=== PATIENT | male | born 1945 | race Caucasian/White ===

== ENCOUNTER 2019-02-01 19:08 | Observation (INO) | payer MEDICARE, OTHER, SELFPAY ==
[2019-02-01 19:35] VITALS: BP 161/97; PULSE 88; RESP 22; TEMP 36.8; O2SAT 95; BMI 34.7
[2019-02-01 21:30] VITALS: BP 146/97; PULSE 70; O2SAT 94
--- NOTE | 2019-02-01 21:30 | ED.WEAKNESS ---
HPI - Weakness General Chief complaint: Weakness Stated complaint: SIDE AFFECTS TO CHEMO Time Seen by Provider: 02/01/19 21:30 Source: patient and family Mode of arrival: ambulatory Limitations: no limitations History of Present Illness HPI Narrative: 73-year-old male former smoker with history of renal cell carcinoma, hypertension, hyperlipidemia received a new chemotherapy drug about 10 days ago and has been in decline ever since. He has had decreasing appetite and overall oral intake. He has become increasingly weak over the past 5 days and his sister states he now requires significant help to even get out of the chair. This is a drastic departure from his norm as he is typically high functioning person whom lives alone, and has no problem doing so. He denies any specific complaints other than increased difficulty controlling his urine outflow which has been an ongoing problem. He denies any fever chills nor chest pain or shortness of breath. He is dizzy and weak, as stated. He denies abdominal pain but has ongoing nausea and decreased appetite. He denies any diarrhea or constipation MD Complaint: generalized weakness Onset (ago): day(s) Duration: constant Location: generalized Relieving factors: none Exacerbating factors: none Context: new medication Associated symptoms: denies other symptoms Related Data Home Medications Medication Instructions Recorded Confirmed Daily Multivitamin 1 tab PO DAILY 02/02/19 02/02/19 axitinib [Inlyta] 5 mg PO BID 02/02/19 02/02/19 cyanocobalamin (vitamin B-12) 1 cap PO DAILY 02/02/19 02/02/19 metoprolol succinate 12.5 mg PO DAILY 02/02/19 02/02/19 simvastatin 20 mg PO DAILY 02/02/19 02/02/19 Allergies Allergy/AdvReac Type Severity Reaction Status Date / Time No Known Drug Allergies Allergy Verified 02/02/19 02:10 Review of Systems Constitutional Denies chills, Denies fever(s), Denies lethargy and Reports weakness Eyes Denies change in vision, Denies eye discharge, Denies irritation and Denies loss of vision ENT Ears, Nose, Mouth, and Throat: Denies change in voice, Denies neck pain and Denies sore throat Cardiovascular Denies chest pain, Denies irregular heart rhythm, Denies lightheadedness, Denies palpitations, Denies dyspnea, Denies dyspnea on exertion and Denies orthopnea Respiratory Denies cough, Denies dyspnea, Denies dyspnea on exertion and Denies wheezing Gastrointestinal Gastrointestinal: Denies abdominal pain, Denies change in bowel habits, Denies diarrhea, Denies nausea and Denies vomiting Genitourinary Denies hematuria, Denies flank pain, Denies urinary incontinence and Denies urinary urgency Musculoskeletal Denies neck pain Integumentary/Breasts Denies pruritus, Denies erythema, Denies rash and Denies wounds Neurologic Denies confusion, Denies loss of vision and Reports weakness Psychiatric Denies anxiety, Denies confusion, Denies depression, Denies homicidal ideation and Denies suicidal ideation Endocrine Denies palpitations Hematologic/Lymphatic Denies easy bruising Allergic/Immunologic Denies wheezing [facility] Medical History Hx of blood clots (Chronic) BPH (benign prostatic hyperplasia) (Chronic) Hyperlipidemia (Chronic) Essential hypertension (Chronic) Renal cell carcinoma (Acute) History of prostate cancer (Inactive) Surgical History H/O left nephrectomy (Chronic) S/P TURP (Resolved) Family History (Updated 02/02/19 @ 02:59 by REGULO Cardoaz) Mother Colon cancer Father Kidney failure Diabetes mellitus Social History household members: none Smoking Status: Former smoker alcohol intake: current Family History Mother Colon cancer Father Kidney failure Diabetes mellitus Social History household members: none Smoking Status: Former smoker alcohol intake: current Exam Narrative Exam Narrative: GENERAL: [73] year old patient appears stated age. He is clearly ill, and requires significant help to get from the wheelchair HEAD: Atraumatic. Normocephalic. EYES: Pupils equal round and reactive. Extraocular motions intact. No scleral icterus. No injection or drainage. ENT: Dry mucous membranes Nose without bleeding, purulent drainage. Throat without erythema, tonsillar hypertrophy or exudate. Airway patent. NECK: Trachea midline. Non tender CARDIOVASCULAR: Regular rate and rhythm without murmurs, gallops, or rubs. RESPIRATORY: Clear to auscultation. Breath sounds equal bilaterally. No wheezes, rales, or rhonchi. GASTROINTESTINAL: Abdomen soft, non-tender, nondistended. EXTREMITIES: No edema or joint tenderness. BACK: Nontender without deformity or crepitance. No flank tenderness. NEURO: AOx3. SKIN: Poor turgor. No rash or erythema of visible areas Initial Vital Signs Initial Vital Signs: Vital Signs Temperature 98.2 F 02/01/19 19:35 Pulse Rate 88 02/01/19 19:35 Respiratory Rate 22 02/01/19 19:35 Blood Pressure 161/97 H 02/01/19 19:35 Pulse Oximetry 95 02/01/19 19:35 Course Orders Ordered: ED Orders 02/01/19 22:23 Basic Metabolic Panel Stat Complete Blood Count AUTO DIFF Stat Procalcitonin Stat 02/01/19 23:23 Urinalysis and Microscopic Stat 02/02/19 05:28 Basic Metabolic Panel Routine Complete Blood Count AUTO DIFF Routine Heparin Sodium (Porcine) (Heparin) 5,000 unit SUBCUT BID JOHN Sodium Chloride (Normal Saline 0.45%) 1,000 mls @ 100 mls/hr IV CONT JOHN Last Admin: 02/02/19 03:21 Dose: 100 mls/hr Influenza Virus Vaccine (Flu Vaccine) 0.5 ml IM .ONCE ONE Stop: 02/02/19 09:01 Ondansetron HCl (Zofran) 4 mg IV Q6HR JOHN Last Admin: 02/02/19 05:52 Dose: Not Given Sodium Chloride (Normal Saline 0.9% Flush) 10 ml IV PRN PRN PRN Reason: Flush Last Admin: 02/02/19 03:20 Dose: 10 ml Discontinued Medications Hydralazine HCl (Apresoline) 10 mg PO NOW ONE Stop: 02/02/19 03:07 Last Admin: 02/02/19 03:53 Dose: Not Given Sodium Chloride (Normal Saline 0.9%) 1,000 mls @ 1,000 mls/hr IV BOLUS ONE Stop: 02/02/19 02:03 Last Infusion: 02/02/19 02:10 Dose: 0 mls/hr Admin: 02/02/19 01:15 Dose: 1,000 mls/hr Vital Signs - 8 hr 02/01/19 22:48 02/02/19 01:50 02/02/19 02:31 Temperature Pulse Rate 66 63 67 Respiratory Rate 16 14 Blood Pressure 172/93 H Blood Pressure [Right Arm] 166/103 H 160/90 H Pulse Oximetry 96 95 94 02/02/19 02:45 Temperature 98.0 F Pulse Rate 66 Respiratory Rate 19 Blood Pressure 146/81 H Blood Pressure [Right Arm] Pulse Oximetry 97 MDM - Weakness Lab Data Result diagrams: 02/02/19 05:28 02/02/19 05:28 Lab Results 02/01/19 02/01/19 02/01/19 Range/Units 22:23 22:23 22:23 WBC 8.8 (4.5-11.0) X10^3/uL RBC 4.93 (4.5-5.9) X10^6/uL Hgb 15.1 (13.5-17.5) g/dL Hct 43.6 (41-53) % MCV 88.5 (80-100) fL MCH 30.7 (26-34) PG MCHC 34.7 (30-36) % RDW 14.6 (11.6-14.8) % Plt Count 247 (150-400) X10^3/uL Neut % (Auto) 66.8 (50-75) % Lymph % (Auto) 20.5 L (25-40) % [place] % (Auto) 11.2 (3-14) % Eos % (Auto) 0.9 L (2-4) % Baso % (Auto) 0.6 (0-2) % Neut # (Auto) 5900 (4041-5277) /uL Lymph # (Auto) 1800 (3430-4392) /uL [place] # (Auto) 1000 H (0-900) /uL Eos # (Auto) 100 (0-450) /uL Baso # (Auto) 100 (0-100) /uL Sodium 136 L (137-145) mmol/L Potassium 4.5 (3.4-5.1) mmol/L Chloride 105 (98-107) mmol/L Carbon Dioxide 20 L (22-32) mmol/L BUN 38 H (9-20) mg/dL Creatinine 2.40 H (0.66-1.25) mg/dL Estimated GFR 26.8 L (>60) mL/min BUN/Creatinine Ratio 15.8 (6-22) Glucose 81 (80-110) mg/dL Calcium 9.2 (8.4-10.2) mg/dL Procalcitonin 0.07 (<0.5) ng/mL Urine Color Urine Appearance Urine pH (4.5-8.0) Ur Specific [place] (1.000-1.035) Urine Protein (Negative) Urine Glucose (UA) (Negative) g/dL Urine Ketones (NEGATIVE) Urine Occult Blood (Negative) Urine Nitrate (Negative) Urine Bilirubin (NEGATIVE) Urine Urobilinogen (0.2) E.U./dL Ur Leukocyte Esterase (NEGATIVE) Urine RBC (0-5/HPF) Urine WBC (0-5/HPF) Urine Bacteria (None) Hyaline Casts (None) Granular Casts (None) Ur Culture Indicated? 02/01/19 02/02/19 02/02/19 Range/Units 23:23 05:28 05:28 WBC 8.8 (4.5-11.0) X10^3/uL RBC 4.71 (4.5-5.9) X10^6/uL Hgb 14.4 (13.5-17.5) g/dL Hct 42.3 (41-53) % MCV 89.8 (80-100) fL MCH 30.5 (26-34) PG MCHC 33.9 (30-36) % RDW 14.2 (11.6-14.8) % Plt Count 213 (150-400) X10^3/uL Neut % (Auto) 72.3 (50-75) % Lymph % (Auto) 15.7 L (25-40) % [place] % (Auto) 10.1 (3-14) % Eos % (Auto) 1.3 L (2-4) % Baso % (Auto) 0.6 (0-2) % Neut # (Auto) 6300 (8071-0126) /uL Lymph # (Auto) 1400 (7300-1391) /uL [place] # (Auto) 900 (0-900) /uL Eos # (Auto) 100 (0-450) /uL Baso # (Auto) 100 (0-100) /uL Sodium 137 (137-145) mmol/L Potassium 4.3 (3.4-5.1) mmol/L Chloride 106 (98-107) mmol/L Carbon Dioxide 22 (22-32) mmol/L BUN 34 H (9-20) mg/dL Creatinine 2.40 H (0.66-1.25) mg/dL Estimated GFR 26.8 L (>60) mL/min BUN/Creatinine Ratio 14.2 (6-22) Glucose 106 (80-110) mg/dL Calcium 8.4 (8.4-10.2) mg/dL Procalcitonin (<0.5) ng/mL Urine Color Yellow Urine Appearance Clear Urine pH 5.0 (4.5-8.0) Ur Specific [place] 1.020 (1.000-1.035) Urine Protein Trace H (Negative) Urine Glucose (UA) Negative (Negative) g/dL Urine Ketones Negative (NEGATIVE) Urine Occult Blood 3+ H (Negative) Urine Nitrate Negative (Negative) Urine Bilirubin Negative (NEGATIVE) Urine Urobilinogen 0.2 (0.2) E.U./dL Ur Leukocyte Esterase Negative (NEGATIVE) Urine RBC 5-10/hpf H (0-5/HPF) Urine WBC 0-1/hpf (0-5/HPF) Urine Bacteria None seen (None) Hyaline Casts 0-1/lpf (None) Granular Casts 0-1/lpf (None) Ur Culture Indicated? Cult not indicated Imaging Data Chest x-ray: Radiologist's impression: [address] [address] XRay Report Signed Patient: Sean Shipman [facility]#: [id number] : 8Acct:[id number] Age/Sex: 73 / MDate of Service: 02/01/19 Loc: ED Accession Number: [id number] Procedure: XR chest 2V Ordering Provider: Obed Grant D.O. PROCEDURE: XR CHEST 2V INDICATIONS: shortness of breath TECHNIQUE: 2 views of the chest were acquired. COMPARISON: [facility], CT, CT CHEST ABDOMEN PELVIS WITHOUT CONTRAST, 12/24/2018, 14:42. FINDINGS: Surgical changes and devices: None. Lungs and pleura: Previously noted small bilateral pulmonary nodules are not well-visualized on radiographic evaluation. No focal consolidation. Minimal streaky bibasilar opacities are favored to represent atelectasis. No pleural effusions or pneumothorax. Mediastinum: Mediastinal contours are normal. Heart size is normal. Bones and chest wall: No suspicious bony abnormalities. Soft tissues appear unremarkable. IMPRESSION: Chest without acute cardiopulmonary abnormalities. Minimal streaky bibasilar opacities are favored to represent atelectasis. Dictated by: David Aldana M.D. on 02/01/2019 at 21:46 Approved by: David Aldana M.D. on 02/01/2019 at 21:48 [facility] Narrative Medical decision making narrative: 73-year-old chronically ill male with multiple medical problems has taken a clear turn for the worse over the past week or so. Historically he is a high functioning individual whom lives alone and over the past 5 days has had a precipitous decline and requires rapidly increasing levels of assistance. He has had decreased appetite, is losing weight and is dehydrated on exam. He will require hospitalization for stabilization and further characterization of his underlying illness. Discharge Plan Departure Patient Disposition: Admitted as Observation Clinical Impression: Dehydration, Failure to thrive, Generalized weakness Discharge Date/Time: 02/02/19 02:44 Interventions: ED Discharge Assessment Last Done: 02/02/19 02:31 Admit Date/Time: 02/02/19 02:16 Admit Provider: Francesca Orourke
[2019-02-01 22:34] LABS: Add Manual Diff / Slide Review NO; Basophils Absolute Auto 100 /uL (0-100); Basophils Percent Auto 0.6 % (0-2); Eosinophils Absolute Auto 100 /uL (0-450); Eosinophils Percent Auto 0.9 % (2-4); Hematocrit 43.6 % (41-53); Hemoglobin 15.1 g/dL (13.5-17.5); Lymphocytes Absolute Auto 1800 /uL (1100-4500); Lymphocytes Percent Auto 20.5 % (25-40); Mean Corpuscular HGB Conc 34.7 % (30-36); Mean Corpuscular Hemoglobin 30.7 PG (26-34); Mean Corpuscular Volume 88.5 fL (80-100); Monocytes Absolute Auto 1000 /uL (0-900); Monocytes Percent Auto 11.2 % (3-14); Neutrophils Absolute Auto 5900 /uL (1500-7000); Neutrophils Percent Auto 66.8 % (50-75); Platelet Count 247 X10^3/uL (150-400); Red Blood Cell Count 4.93 X10^6/uL (4.5-5.9); Red Cell Distribution Width 14.6 % (11.6-14.8); White Blood Cell Count 8.8 X10^3/uL (4.5-11.0)
[2019-02-01 22:46] LABS: BUN Creatinine Ratio 15.8 (6-22); Blood Urea Nitrogen 38 mg/dL (9-20); Calcium 9.2 mg/dL (8.4-10.2); Carbon Dioxide 20 mmol/L (22-32); Chloride 105 mmol/L (98-107); Estimated Glomerular Filt Rate 26.8 mL/min (>60); Glucose 81 mg/dL (80-110); HEMOLYSIS 40 (0-50); Potassium 4.5 mmol/L (3.4-5.1); Sodium 136 mmol/L (137-145)
[2019-02-01 22:48] VITALS: BP 166/103; PULSE 66; RESP 16; O2SAT 96
[2019-02-01 23:02] LABS: Procalcitonin 0.07 ng/mL (<0.5)
[2019-02-01 23:30] LABS: Bacteria Urine None Seen
[2019-02-01 23:33] LABS: Appearance Urine UA CLEAR; Bilirubin Urine UA NEGATIVE (NEGATIVE); Color Urine UA YELLOW; Glucose Urine UA NEGATIVE (Negative); Ketones Urine UA NEGATIVE (NEGATIVE); Leukocyte Esterase Urine UA NEGATIVE (NEGATIVE); Nitrite Urine UA NEGATIVE (Negative); Occult Blood Urine UA 3+ (Negative); Protein Urine UA TRACE (Negative); Urobilinogen Urine UA 0.2 E.U./dL (0.2)
[2019-02-01 23:40] LABS: RBC Urine 5-10/HPF (0-5/HPF)
[2019-02-01 23:41] LABS: Granular Casts Urine 0-1/LPF; Hyaline Casts Urine 0-1/LPF
[2019-02-01 23:42] LABS: Culture Indicated Urine Cult Not Indicated; WBC Urine 0-1/HPF (0-5/HPF)
[2019-02-02] VITALS (10 sets, daily range): BP systolic 143–172; BP diastolic 81–94; PULSE 21–73; RESP 14–73; TEMP 36.4–36.7; O2SAT 94–97; BMI 33.6
[2019-02-02] MEDS: SODIUM CHLORIDE 0.9% 1,000 ML 1000 ML IV (01:15)
--- NOTE | 2019-02-02 02:52 | PM.HP.1 ---
History of Present Illness Date Patient Seen: 02/02/19 Time Patient Seen: 02:30 Chief complaint: SIDE AFFECTS TO CHEMO Narrative: Sean Shipman is a pleasant 73-year-old male with a history of hypertension, hyperlipidemia, prostate cancer, and history of a urethral blood clot, currently being treated for renal cell carcinoma and undergoing immune therapy under the care of Dr. Orourke at [facility]. He states that he underwent an immunotherapy treatment 2 weeks ago which was the 1st treatment he had received for the renal cell carcinoma. He does not know what medications he was administered. He reported to the emergency room having no energy he has had a little bit of diarrhea however none today. He denies fever or chills, shortness of breath, chest pain, nausea or vomiting, abdominal pain, he does endorse having urinary urge particularly has been bad since starting this immune therapy. He states he has also had stiff joints since starting this immune therapy. He has had longstanding tingling in his toes, denies any lesions or rashes, denies having history of thyroid disease. Patient is under the care of a PCP in [place] however we do not have any records of his current medications and by the time I came down to see him his sister who had his medication list had left. The patient was seen in the ED and noted to be quite dry and essentially unable to walk due to profound fatigue. Patient was very lethargic while interviewing him. Patient History Medical History (Updated 02/02/19 @ 03:03 by REGULO Cardoza) Hx of blood clots (Chronic) BPH (benign prostatic hyperplasia) (Chronic) Hyperlipidemia (Chronic) Essential hypertension (Chronic) Renal cell carcinoma (Acute) History of prostate cancer (Inactive) Surgical History (Updated 02/02/19 @ 02:58 by REGULO Cardoza) H/O left nephrectomy (Chronic) S/P TURP (Resolved) Family History (Updated 02/02/19 @ 02:59 by REGULO Cardoza) Mother Colon cancer Father Kidney failure Diabetes mellitus Social History household members: none Smoking Status: Former smoker alcohol intake: current Family & Social History Family History (Updated 02/02/19 @ 02:59 by REGULO Cardoza) Mother Colon cancer Father Kidney failure Diabetes mellitus 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 Tobacco & Substance use: Smoking history: Quit in 1987 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, 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 Meds Allergies Allergy/AdvReac Type Severity Reaction Status Date / Time No Known Drug Allergies Allergy Verified 02/02/19 02:10 Review of Systems Review of Systems All systems reviewed & are unremarkable except as noted in HPI and below Exam Vital Signs (past 8 hours): - 02/01/19 19:35 02/01/19 21:30 02/01/19 22:48 Temperature 98.2 F Pulse Rate 88 70 66 Respiratory Rate 22 16 Blood Pressure 161/97 H Blood Pressure [Right Arm] 146/97 H 166/103 H Pulse Oximetry 95 94 96 02/02/19 01:50 02/02/19 02:31 Temperature Pulse Rate 63 67 Respiratory Rate 14 Blood Pressure 172/93 H Blood Pressure [Right Arm] 160/90 H Pulse Oximetry 95 94 Oxygen Delivery Method Room Air Narrative Exam Narrative: Gen: Alert, oriented well-developed 73 y.o. male, pale, lethargic, and appears chronically ill. HEENT: normocephalic, atraumatic, conjunctiva clear, sclera non-icteric, oral mucosa pink and dry Neck: supple, full ROM Resp: Lungs CTA, non-labored breathing CV: RRR, no murmur or rubs Abd: soft, non-tender, normoactive BTs Skin: no lesions or rashes, dry and intact Neuro: Alert and oriented X 4 w/no focal deficits Extremities: moves all 4 extremities, is ambulatory, negative Cong?s sign Psyche: normal mood and affect. Objective Labs Result Diagrams: 02/01/19 22:23 02/01/19 22:23 Labs: Laboratory Results - last 24 hr 02/01/19 02/01/19 02/01/19 22:23 22:23 22:23 WBC 8.8 RBC 4.93 Hgb 15.1 Hct 43.6 MCV 88.5 MCH 30.7 MCHC 34.7 RDW 14.6 Plt Count 247 Neut % (Auto) 66.8 Lymph % (Auto) 20.5 L [place] % (Auto) 11.2 Eos % (Auto) 0.9 L Baso % (Auto) 0.6 Neut # (Auto) 5900 Lymph # (Auto) 1800 [place] # (Auto) 1000 H Eos # (Auto) 100 Baso # (Auto) 100 Sodium 136 L Potassium 4.5 Chloride 105 Carbon Dioxide 20 L BUN 38 H Creatinine 2.40 H Estimated GFR 26.8 L BUN/Creatinine Ratio 15.8 Glucose 81 Calcium 9.2 Procalcitonin 0.07 Urine Color Urine Appearance Urine pH Ur Specific [place] Urine Protein Urine Glucose (UA) Urine Ketones Urine Occult Blood Urine Nitrate Urine Bilirubin Urine Urobilinogen Ur Leukocyte Esterase Urine RBC Urine WBC Urine Bacteria Hyaline Casts Granular Casts Ur Culture Indicated? 02/01/19 23:23 WBC RBC Hgb Hct MCV MCH MCHC RDW Plt Count Neut % (Auto) Lymph % (Auto) [place] % (Auto) Eos % (Auto) Baso % (Auto) Neut # (Auto) Lymph # (Auto) [place] # (Auto) Eos # (Auto) Baso # (Auto) Sodium Potassium Chloride Carbon Dioxide BUN Creatinine Estimated GFR BUN/Creatinine Ratio Glucose Calcium Procalcitonin Urine Color Yellow Urine Appearance Clear Urine pH 5.0 Ur Specific [place] 1.020 Urine Protein Trace H Urine Glucose (UA) Negative Urine Ketones Negative Urine Occult Blood 3+ H Urine Nitrate Negative Urine Bilirubin Negative Urine Urobilinogen 0.2 Ur Leukocyte Esterase Negative Urine RBC 5-10/hpf H Urine WBC 0-1/hpf Urine Bacteria None seen Hyaline Casts 0-1/lpf Granular Casts 0-1/lpf Ur Culture Indicated? Cult not indicated Assessment & Plan Assessment & Plan narrative: Sean Shipman this is a 73-year-old male currently undergoing immunotherapy for renal cell carcinoma, will be placed into observation for IV hydration and management of his side effects from the immune therapy. We will need to inform his oncologist of his admission here and obtain current treatment records. 1. 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 Urinalysis is negative for UTI however there is blind in his urine, culture is not indicated. 2. Essential hypertension, chronic, present on admission Patient is aware that he takes metoprolol however the type and dose are unknown He is ordered for 1 dose of p.o. hydralazine 10 mg x1 Will need to obtain his current med list in the morning 3. Hyperlipidemia, chronic Patient states does not know the dose See #2. Patient is admitted to observation as his stay is anticipated to not exceed 2 midnights. FEN: 0.45 NS at 100 ml/hour, 2 gram sodium diet, chemistries in the am. VTE Prophylaxis: Heparin 5000 units subQ bid Disposition: Unknown at this time Code status: Full Code Admission time: 65 minutes Meds reconciled: Yes/No/Partial based on current med list Time Spent With Patient Time with patient: 25 - 35 minutes Quality VTE Deep Vein Thrombosis/Pulmonary Embolism Present on Admission: No
--- NOTE | 2019-02-02 03:06 | P.HP_ITS ---
History of Present Illness Date Patient Seen: 02/02/19 Time Patient Seen: 02:30 Chief complaint: SIDE AFFECTS TO CHEMO Narrative: Sean Shipman is a pleasant 73-year-old male with a history of hypertension, hyperlipidemia, prostate cancer, and history of a urethral blood clot, currently being treated for renal cell carcinoma and undergoing immune therapy under the care of Dr. Orourke at [facility]. He states that he underwent an immunotherapy treatment 2 weeks ago which was the 1st treatment he had received for the renal cell carcinoma. He does not know what medications he was administered. He reported to the emergency room having no energy he has had a little bit of diarrhea however none today. He denies fever or chills, shortness of breath, chest pain, nausea or vomiting, abdominal pain, he does endorse having urinary urge particularly has been bad since starting this immune therapy. He states he has also had stiff joints since starting this immune therapy. He has had longstanding tingling in his toes, denies any lesions or rashes, denies having history of thyroid disease. Patient is under the care of a PCP in [place] however we do not have any records of his current medications and by the time I came down to see him his sister who had his medication list had left. The patient was seen in the ED and noted to be quite dry and essentially unable to walk due to profound fatigue. Patient was very lethargic while interviewing him. Patient History Medical History (Updated 02/02/19 @ 03:03 by REGULO Cardoza) Hx of blood clots (Chronic) BPH (benign prostatic hyperplasia) (Chronic) Hyperlipidemia (Chronic) Essential hypertension (Chronic) Renal cell carcinoma (Acute) History of prostate cancer (Inactive) Surgical History (Updated 02/02/19 @ 02:58 by REGULO Cardoza) H/O left nephrectomy (Chronic) S/P TURP (Resolved) Family History (Updated 02/02/19 @ 02:59 by REGULO Cardoza) Mother Colon cancer Father Kidney failure Diabetes mellitus Social History household members: none Smoking Status: Former smoker alcohol intake: current Family & Social History Family History (Updated 02/02/19 @ 02:59 by REGULO Cardoza) Mother Colon cancer Father Kidney failure Diabetes mellitus 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 Tobacco & Substance use: Smoking history: Quit in 1987 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, 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 Meds Allergies Allergy/AdvReac Type Severity Reaction Status Date / Time No Known Drug Allergies Allergy Verified 02/02/19 02:10 Review of Systems Review of Systems All systems reviewed & are unremarkable except as noted in HPI and below Exam Vital Signs (past 8 hours): - 02/01/19 19:35 02/01/19 21:30 02/01/19 22:48 Temperature 98.2 F Pulse Rate 88 70 66 Respiratory Rate 22 16 Blood Pressure 161/97 H Blood Pressure [Right Arm] 146/97 H 166/103 H Pulse Oximetry 95 94 96 02/02/19 01:50 02/02/19 02:31 Temperature Pulse Rate 63 67 Respiratory Rate 14 Blood Pressure 172/93 H Blood Pressure [Right Arm] 160/90 H Pulse Oximetry 95 94 Oxygen Delivery Method Room Air Narrative Exam Narrative: Gen: Alert, oriented well-developed 73 y.o. male, pale, lethargic, and appears chronically ill. HEENT: normocephalic, atraumatic, conjunctiva clear, sclera non-icteric, oral mucosa pink and dry Neck: supple, full ROM Resp: Lungs CTA, non-labored breathing CV: RRR, no murmur or rubs Abd: soft, non-tender, normoactive BTs Skin: no lesions or rashes, dry and intact Neuro: Alert and oriented X 4 w/no focal deficits Extremities: moves all 4 extremities, is ambulatory, negative Cong?s sign Psyche: normal mood and affect. Objective Labs Result Diagrams: 02/01/19 22:23 02/01/19 22:23 Labs: Laboratory Results - last 24 hr 02/01/19 02/01/19 02/01/19 22:23 22:23 22:23 WBC 8.8 RBC 4.93 Hgb 15.1 Hct 43.6 MCV 88.5 MCH 30.7 MCHC 34.7 RDW 14.6 Plt Count 247 Neut % (Auto) 66.8 Lymph % (Auto) 20.5 L Ross % (Auto) 11.2 Eos % (Auto) 0.9 L Baso % (Auto) 0.6 Neut # (Auto) 5900 Lymph # (Auto) 1800 Ross # (Auto) 1000 H Eos # (Auto) 100 Baso # (Auto) 100 Sodium 136 L Potassium 4.5 Chloride 105 Carbon Dioxide 20 L BUN 38 H Creatinine 2.40 H Estimated GFR 26.8 L BUN/Creatinine Ratio 15.8 Glucose 81 Calcium 9.2 Procalcitonin 0.07 Urine Color Urine Appearance Urine pH Ur Specific Henderson Urine Protein Urine Glucose (UA) Urine Ketones Urine Occult Blood Urine Nitrate Urine Bilirubin Urine Urobilinogen Ur Leukocyte Esterase Urine RBC Urine WBC Urine Bacteria Hyaline Casts Granular Casts Ur Culture Indicated? 02/01/19 23:23 WBC RBC Hgb Hct MCV MCH MCHC RDW Plt Count Neut % (Auto) Lymph % (Auto) Ross % (Auto) Eos % (Auto) Baso % (Auto) Neut # (Auto) Lymph # (Auto) Ross # (Auto) Eos # (Auto) Baso # (Auto) Sodium Potassium Chloride Carbon Dioxide BUN Creatinine Estimated GFR BUN/Creatinine Ratio Glucose Calcium Procalcitonin Urine Color Yellow Urine Appearance Clear Urine pH 5.0 Ur Specific Henderson 1.020 Urine Protein Trace H Urine Glucose (UA) Negative Urine Ketones Negative Urine Occult Blood 3+ H Urine Nitrate Negative Urine Bilirubin Negative Urine Urobilinogen 0.2 Ur Leukocyte Esterase Negative Urine RBC 5-10/hpf H Urine WBC 0-1/hpf Urine Bacteria None seen Hyaline Casts 0-1/lpf Granular Casts 0-1/lpf Ur Culture Indicated? Cult not indicated Assessment & Plan Assessment & Plan narrative: Sean Shipman this is a 73-year-old male currently undergoing immunotherapy for renal cell carcinoma, will be placed into observation for IV hydration and management of his side effects from the immune therapy. We will need to inform his oncologist of his admission here and obtain current treatment records. 1. Status post renal cell carcinoma immune therapy side effect, acute, present on admission * Patient will be placed into observation status and provided IV hydration with 0.45 normal saline at 100 mL/hour * We will need to obtain current treatment records from his oncologist as well as informing his oncologist of his admission here. * Urinalysis is negative for UTI however there is blind in his urine, culture is not indicated. 2. Essential hypertension, chronic, present on admission * Patient is aware that he takes metoprolol however the type and dose are unknown * He is ordered for 1 dose of p.o. hydralazine 10 mg x1 * Will need to obtain his current med list in the morning 3. Hyperlipidemia, chronic * Patient states does not know the dose * See #2. Patient is admitted to observation as his stay is anticipated to not exceed 2 midnights. FEN: 0.45 NS at 100 ml/hour, 2 gram sodium diet, chemistries in the am. VTE Prophylaxis: Heparin 5000 units subQ bid Disposition: Unknown at this time Code status: Full Code Admission time: 65 minutes Meds reconciled: Yes/No/Partial based on current med list Time Spent With Patient Time with patient: 25 - 35 minutes Quality VTE Deep Vein Thrombosis/Pulmonary Embolism Present on Admission: No
[2019-02-02] MEDS: SODIUM CHLORIDE 0.9% FLUSH 10 ML IV (03:20)
[2019-02-02] MEDS: SODIUM CHLORIDE 0.45% 1,000 ML 100 ML IV ×3 (03:21→23:12)
--- NOTE | 2019-02-02 04:05 | PC.ADMIT ---
Addendum entered by Yin Phillips R.N. 02/02/19 05:56: Ambulated to bathroom with 1 assist + cane but very slow and needing to stop frequently to rest. When assisted back to bed used walker and patient states he felt more stable with that. Denies pain or nausea at this time. Original Note: 0245 Patient admitted to room 218 per stretcher from ER. Is alert and oriented although speech is delayed. States he has been taking an immunotherapy/chemotherapy drug since 01/21 and became increasingly fatigued, loss of appetite, weak and with a cough so presented to ER for evaluation. Breath sounds diminished but CTA with occasional dry, hacking cough. HRR. BP elevated in ER and now is 146/81. Denies nausea at this time. BT present and abdomen is soft. Has some difficulty repositioning self in bed. States he has urinary urgency and is sometimes incontinent. Skin is in good condition. Normally walks with cane at home. Denies pain. Fall risk score is high and bed alarm is activated. Placed on chemo precautions as last dose of chemo drug was 02/01 a.m. Instructed in use of bed controls/call light. 1605 QUAIL Admission Note: The patient,Sean Shipman,73 y/o, was given written information regarding hospital policies, unit procedures and contact persons. Patient's smoking status: Former smoker. Vital Signs - 8 hr 02/01/19 21:30 02/01/19 22:48 02/02/19 01:50 Temperature Pulse Rate 70 66 63 Respiratory Rate 16 14 Blood Pressure Blood Pressure [Right Arm] 146/97 H 166/103 H 160/90 H Pulse Oximetry 94 96 95 02/02/19 02:31 02/02/19 02:45 Temperature 98.0 F Pulse Rate 67 66 Respiratory Rate 19 Blood Pressure 172/93 H 146/81 H Blood Pressure [Right Arm] Pulse Oximetry 94 97
[2019-02-02 06:12] LABS: Add Manual Diff / Slide Review NO; Basophils Absolute Auto 100 /uL (0-100); Basophils Percent Auto 0.6 % (0-2); Eosinophils Absolute Auto 100 /uL (0-450); Eosinophils Percent Auto 1.3 % (2-4); Hematocrit 42.3 % (41-53); Hemoglobin 14.4 g/dL (13.5-17.5); Lymphocytes Absolute Auto 1400 /uL (1100-4500); Lymphocytes Percent Auto 15.7 % (25-40); Mean Corpuscular HGB Conc 33.9 % (30-36); Mean Corpuscular Hemoglobin 30.5 PG (26-34); Mean Corpuscular Volume 89.8 fL (80-100); Monocytes Absolute Auto 900 /uL (0-900); Monocytes Percent Auto 10.1 % (3-14); Neutrophils Absolute Auto 6300 /uL (1500-7000); Neutrophils Percent Auto 72.3 % (50-75); Platelet Count 213 X10^3/uL (150-400); Red Blood Cell Count 4.71 X10^6/uL (4.5-5.9); Red Cell Distribution Width 14.2 % (11.6-14.8); White Blood Cell Count 8.8 X10^3/uL (4.5-11.0)
[2019-02-02 06:15] LABS: BUN Creatinine Ratio 14.2 (6-22); Blood Urea Nitrogen 34 mg/dL (9-20); Calcium 8.4 mg/dL (8.4-10.2); Carbon Dioxide 22 mmol/L (22-32); Chloride 106 mmol/L (98-107); Estimated Glomerular Filt Rate 26.8 mL/min (>60); Glucose 106 mg/dL (80-110); HEMOLYSIS < 15 (0-50); Potassium 4.3 mmol/L (3.4-5.1); Sodium 137 mmol/L (137-145)
--- NOTE | 2019-02-02 06:44 | ED_ITS ---
HPI - Weakness General Chief complaint: Weakness Stated complaint: SIDE AFFECTS TO CHEMO Time Seen by Provider: 02/01/19 21:30 Source: patient and family Mode of arrival: ambulatory Limitations: no limitations History of Present Illness HPI Narrative: 73-year-old male former smoker with history of renal cell carcino ma, hypertension, hyperlipidemia received a new chemotherapy drug about 10 days ago and has been in decline ever since. He has had decreasing appetite and overall oral intake. He has become increasingly weak over the past 5 days and his sister states he now requires significant help to even get out of the chair. This is a drastic departure from his norm as he is typically high functioning person whom lives alone, and has no problem doing so. He denies any specific complaints other than increased difficulty controlling his urine outflow which has been an ongoing problem. He denies any fever chills nor chest pain or shortness of breath. He is dizzy and weak, as stated. He denies abdominal pain but has ongoing nausea and decreased appetite. He denies any diarrhea or constipation MD Complaint: generalized weakness Onset (ago): day(s) Duration: constant Location: generalized Relieving factors: none Exacerbating factors: none Context: new medication Associated symptoms: denies other symptoms Related Data Home Medications Medication Instructions Recorded Confirmed Daily Multivitamin 1 tab PO DAILY 02/02/19 02/02/19 axitinib [Inlyta] 5 mg PO BID 02/02/19 02/02/19 cyanocobalamin (vitamin B-12) 1 cap PO DAILY 02/02/19 02/02/19 metoprolol succinate 12.5 mg PO DAILY 02/02/19 02/02/19 simvastatin 20 mg PO DAILY 02/02/19 02/02/19 Allergies Allergy/AdvReac Type Severity Reaction Status Date / Time No Known Drug Allergies Allergy Verified 02/02/19 02:10 Review of Systems Constitutional Denies chills, Denies fever(s), Denies lethargy and Reports weakness Eyes Denies change in vision, Denies eye discharge, Denies irritation and Denies loss of vision ENT Ears, Nose, Mouth, and Throat: Denies change in voice, Denies neck pain and Denies sore throat Cardiovascular Denies chest pain, Denies irregular heart rhythm, Denies lightheadedness, Denies palpitations, Denies dyspnea, Denies dyspnea on exertion and Denies orthopnea Respiratory Denies cough, Denies dyspnea, Denies dyspnea on exertion and Denies wheezing Gastrointestinal Gastrointestinal: Denies abdominal pain, Denies change in bowel habits, Denies diarrhea, Denies nausea and Denies vomiting Genitourinary Denies hematuria, Denies flank pain, Denies urinary incontinence and Denies urinary urgency Musculoskeletal Denies neck pain Integumentary/Breasts Denies pruritus, Denies erythema, Denies rash and Denies wounds Neurologic Denies confusion, Denies loss of vision and Reports weakness Psychiatric Denies anxiety, Denies confusion, Denies depression, Denies homicidal ideation and Denies suicidal ideation Endocrine Denies palpitations Hematologic/Lymphatic Denies easy bruising Allergic/Immunologic Denies wheezing [facility] Medical History Hx of blood clots (Chronic) BPH (benign prostatic hyperplasia) (Chronic) Hyperlipidemia (Chronic) Essential hypertension (Chronic) Renal cell carcinoma (Acute) History of prostate cancer (Inactive) Surgical History H/O left nephrectomy (Chronic) S/P TURP (Resolved) Family History (Updated 02/02/19 @ 02:59 by REGULO Cardoza) Mother Colon cancer Father Kidney failure Diabetes mellitus Social History household members: none Smoking Status: Former smoker alcohol intake: current Family History Mother Colon cancer Father Kidney failure Diabetes mellitus Social History household members: none Smoking Status: Former smoker alcohol intake: current Exam Narrative Exam Narrative: GENERAL: [73] year old patient appears stated age. He is clearly ill, and requires significant help to get from the wheelchair HEAD: Atraumatic. Normocephalic. EYES: Pupils equal round and reactive. Extraocular motions intact. No scleral icterus. No injection or drainage. ENT: Dry mucous membranes Nose without bleeding, purulent drainage. Throat without erythema, tonsillar hypertrophy or exudate. Airway patent. NECK: Trachea midline. Non tender CARDIOVASCULAR: Regular rate and rhythm without murmurs, gallops, or rubs. RESPIRATORY: Clear to auscultation. Breath sounds equal bilaterally. No wheezes, rales, or rhonchi. GASTROINTESTINAL: Abdomen soft, non-tender, nondistended. EXTREMITIES: No edema or joint tenderness. BACK: Nontender without deformity or crepitance. No flank tenderness. NEURO: AOx3. SKIN: Poor turgor. No rash or erythema of visible areas Initial Vital Signs Initial Vital Signs: Vital Signs Temperature 98.2 F 02/01/19 19:35 Pulse Rate 88 02/01/19 19:35 Respiratory Rate 22 02/01/19 19:35 Blood Pressure 161/97 H 02/01/19 19:35 Pulse Oximetry 95 02/01/19 19:35 Course Orders Ordered: ED Orders 02/01/19 22:23 Basic Metabolic Panel Stat Complete Blood Count AUTO DIFF Stat Procalcitonin Stat 02/01/19 23:23 Urinalysis and Microscopic Stat 02/02/19 05:28 Basic Metabolic Panel Routine Complete Blood Count AUTO DIFF Routine Heparin Sodium (Porcine) (Heparin) 5,000 unit SUBCUT BID JOHN Sodium Chloride (Normal Saline 0.45%) 1,000 mls @ 100 mls/hr IV CONT JOHN Last Admin: 02/02/19 03:21 Dose: 100 mls/hr Influenza Virus Vaccine (Flu Vaccine) 0.5 ml IM .ONCE ONE Stop: 02/02/19 09:01 Ondansetron HCl (Zofran) 4 mg IV Q6HR JOHN Last Admin: 02/02/19 05:52 Dose: Not Given Sodium Chloride (Normal Saline 0.9% Flush) 10 ml IV PRN PRN PRN Reason: Flush Last Admin: 02/02/19 03:20 Dose: 10 ml Discontinued Medications Hydralazine HCl (Apresoline) 10 mg PO NOW ONE Stop: 02/02/19 03:07 Last Admin: 02/02/19 03:53 Dose: Not Given Sodium Chloride (Normal Saline 0.9%) 1,000 mls @ 1,000 mls/hr IV BOLUS ONE Stop: 02/02/19 02:03 Last Infusion: 02/02/19 02:10 Dose: 0 mls/hr Admin: 02/02/19 01:15 Dose: 1,000 mls/hr Vital Signs - 8 hr 02/01/19 22:48 02/02/19 01:50 02/02/19 02:31 Temperature Pulse Rate 66 63 67 Respiratory Rate 16 14 Blood Pressure 172/93 H Blood Pressure [Right Arm] 166/103 H 160/90 H Pulse Oximetry 96 95 94 02/02/19 02:45 Temperature 98.0 F Pulse Rate 66 Respiratory Rate 19 Blood Pressure 146/81 H Blood Pressure [Right Arm] Pulse Oximetry 97 MDM - Weakness Lab Data Result diagrams: 02/02/19 05:28 02/02/19 05:28 Lab Results 02/01/19 02/01/19 02/01/19 Range/Units 22:23 22:23 22:23 WBC 8.8 (4.5-11.0) X10^3/uL RBC 4.93 (4.5-5.9) X10^6/uL Hgb 15.1 (13.5-17.5) g/dL Hct 43.6 (41-53) % MCV 88.5 (80-100) fL MCH 30.7 (26-34) PG MCHC 34.7 (30-36) % RDW 14.6 (11.6-14.8) % Plt Count 247 (150-400) X10^3/uL Neut % (Auto) 66.8 (50-75) % Lymph % (Auto) 20.5 L (25-40) % [place] % (Auto) 11.2 (3-14) % Eos % (Auto) 0.9 L (2-4) % Baso % (Auto) 0.6 (0-2) % Neut # (Auto) 5900 (6517-5136) /uL Lymph # (Auto) 1800 (9893-4988) /uL [place] # (Auto) 1000 H (0-900) /uL Eos # (Auto) 100 (0-450) /uL Baso # (Auto) 100 (0-100) /uL Sodium 136 L (137-145) mmol/L Potassium 4.5 (3.4-5.1) mmol/L Chloride 105 (98-107) mmol/L Carbon Dioxide 20 L (22-32) mmol/L BUN 38 H (9-20) mg/dL Creatinine 2.40 H (0.66-1.25) mg/dL Estimated GFR 26.8 L (>60) mL/min BUN/Creatinine Ratio 15.8 (6-22) Glucose 81 (80-110) mg/dL Calcium 9.2 (8.4-10.2) mg/dL Procalcitonin 0.07 (<0.5) ng/mL Urine Color Urine Appearance Urine pH (4.5-8.0) Ur Specific Eck[place] (1.000-1.035) Urine Protein (Negative) Urine Glucose (UA) (Negative) g/dL Urine Ketones (NEGATIVE) Urine Occult Blood (Negative) Urine Nitrate (Negative) Urine Bilirubin (NEGATIVE) Urine Urobilinogen (0.2) E.U./dL Ur Leukocyte Esterase (NEGATIVE) Urine RBC (0-5/HPF) Urine WBC (0-5/HPF) Urine Bacteria (None) Hyaline Casts (None) Granular Casts (None) Ur Culture Indicated? 02/01/19 02/02/19 02/02/19 Range/Units 23:23 05:28 05:28 WBC 8.8 (4.5-11.0) X10^3/uL RBC 4.71 (4.5-5.9) X10^6/uL Hgb 14.4 (13.5-17.5) g/dL Hct 42.3 (41-53) % MCV 89.8 (80-100) fL MCH 30.5 (26-34) PG MCHC 33.9 (30-36) % RDW 14.2 (11.6-14.8) % Plt Count 213 (150-400) X10^3/uL Neut % (Auto) 72.3 (50-75) % Lymph % (Auto) 15.7 L (25-40) % [place] % (Auto) 10.1 (3-14) % Eos % (Auto) 1.3 L (2-4) % Baso % (Auto) 0.6 (0-2) % Neut # (Auto) 6300 (5309-2457) /uL Lymph # (Auto) 1400 (7952-4318) /uL [place] # (Auto) 900 (0-900) /uL Eos # (Auto) 100 (0-450) /uL Baso # (Auto) 100 (0-100) /uL Sodium 137 (137-145) mmol/L Potassium 4.3 (3.4-5.1) mmol/L Chloride 106 (98-107) mmol/L Carbon Dioxide 22 (22-32) mmol/L BUN 34 H (9-20) mg/dL Creatinine 2.40 H (0.66-1.25) mg/dL Estimated GFR 26.8 L (>60) mL/min BUN/Creatinine Ratio 14.2 (6-22) Glucose 106 (80-110) mg/dL Calcium 8.4 (8.4-10.2) mg/dL Procalcitonin (<0.5) ng/mL Urine Color Yellow Urine Appearance Clear Urine pH 5.0 (4.5-8.0) Ur Specific [place] 1.020 (1.000-1.035) Urine Protein Trace H (Negative) Urine Glucose (UA) Negative (Negative) g/dL Urine Ketones Negative (NEGATIVE) Urine Occult Blood 3+ H (Negative) Urine Nitrate Negative (Negative) Urine Bilirubin Negative (NEGATIVE) Urine Urobilinogen 0.2 (0.2) E.U./dL Ur Leukocyte Esterase Negative (NEGATIVE) Urine RBC 5-10/hpf H (0-5/HPF) Urine WBC 0-1/hpf (0-5/HPF) Urine Bacteria None seen (None) Hyaline Casts 0-1/lpf (None) Granular Casts 0-1/lpf (None) Ur Culture Indicated? Cult not indicated Imaging Data Chest x-ray: Radiologist's impression: [place] [address] XRay Report Signed Patient: Sean Shipman [facility]#: [id number] : 1946Acct:[id number] Age/Sex: 73 / MDate of Service: 02/01/19 Loc: ED Accession Number: [id number] Procedure: XR chest 2V Ordering Provider: Obed Grant D.O. PROCEDURE: XR CHEST 2V INDICATIONS: shortness of breath TECHNIQUE: 2 views of the chest were acquired. COMPARISON: [facility], CT, CT CHEST ABDOMEN PELVIS WITHOUT CONTRAST, 12/24/2018, 14:42. FINDINGS: Surgical changes and devices: None. Lungs and pleura: Previously noted small bilateral pulmonary nodules are not well-visualized on radiographic evaluation. No focal consolidation. Minimal streaky bibasilar opacities are favored to represent atelectasis. No pleural effusions or pneumothorax. Mediastinum: Mediastinal contours are normal. Heart size is normal. Bones and chest wall: No suspicious bony abnormalities. Soft tissues appear unremarkable. IMPRESSION: Chest without acute cardiopulmonary abnormalities. Minimal streaky bibasilar opacities are favored to represent atelectasis. Dictated by: David Aldana M.D. on 02/01/2019 at 21:46 Approved by: David Aldana M.D. on 02/01/2019 at 21:48 [facility] Narrative Medical decision making narrative: 73-year-old chronically ill male with multiple medical problems has taken a clear turn for the worse over the past week or so. Historically he is a high functioning individual whom lives alone and over the past 5 days has had a precipitous decline and requires rapidly increasing levels of assistance. He has had decreased appetite, is losing weight and is dehydrated on exam. He will require hospitalization for stabilization and further characterization of his underlying illness. Discharge Plan Departure Patient Disposition: Admitted as Observation Clinical Impression: Dehydration, Failure to thrive, Generalized weakness Discharge Date/Time: 02/02/19 02:44 Interventions: ED Discharge Assessment Last Done: 02/02/19 02:31 Admit Date/Time: 02/02/19 02:16 Admit Provider: Francesca Orourke
[2019-02-02] MEDS: METOPROLOL ER 25 MG TABLET 12.5 MG PO (09:39)
[2019-02-02] MEDS: HEPARIN 5,000 UNIT/ML VIAL 5000 UNIT SUBCUT ×2 (09:40→20:32)
--- NOTE | 2019-02-02 13:36 | OT.IP.TRT ---
Occupational Therapy Treatment Note M3 OT- IP Subjective and Pain Start: 02/02/19 13:34 Freq: Status: Active Protocol: Document 02/02/19 13:35 PJM (Rec: 02/02/19 13:36 PJM [id number]) OT- Subjective Occupational Therapy Visit Type Type Administrative Note Visit Start Time 13:35 Notes OT referral received. Pt admitted overnight. Will initiate OT evaluation in AM.
--- NOTE | 2019-02-02 14:35 | PT.IIE ---
Surgical History (Last Reviewed 02/02/19 @ 06:39 by Obed Grant DO) H/O left nephrectomy (Chronic) S/P TURP (Resolved) Medical History (Last Reviewed 02/02/19 @ 06:39 by Obed Grant DO) Hx of blood clots (Chronic) BPH (benign prostatic hyperplasia) (Chronic) Hyperlipidemia (Chronic) Essential hypertension (Chronic) Renal cell carcinoma (Acute) History of prostate cancer (Inactive) Physical Therapy Inpatient Evaluation/Re-Eval M1 PT/OT-IP Prior Functional Status Start: 02/02/19 17:44 Freq: NEEDED Status: Active Protocol: Document 02/02/19 14:35 AB (Rec: 02/02/19 17:59 AB [id number]) Medical Review Prior Functional Status Medical History Reviewed Yes Communication able to make needs known; needs increase time to respond to questions Mobility and Gait pt stated that he is independent with all mobilities and ambulation without AD Social History Household Members none Living Arrangements Apartment/Condo Number of Floors (Floors) Two Floors Number of Stairs To Enter/Railing? 2 steps to enter without rails has 15-20 steps with bilateral rails to get to 2nd level bedroom Home Environment Standard Height Toilet Walk in Shower Home Equipment Front Wheel Walker Straight Cane Employment Status Retired Additional Social History Comment pt lives alone but his sister checks on him M2 PT-IP Current Condition Start: 02/02/19 17:44 Freq: NEEDED Status: Active Protocol: Document 02/02/19 14:35 AB (Rec: 02/02/19 17:59 AB [id number]) Physical Therapy Current Condition Current Condition Evaluation Date 02/02/19 Treatment Diagnosis renal CA; failure to thrive; dehydration; generalized weakness Onset Date 02/02/19 Precautions Other Precautions contact chemo precaution M3 PT-IP Subjective Start: 02/02/19 17:44 Freq: NEEDED Status: Active Protocol: Document 02/02/19 14:35 AB (Rec: 02/02/19 17:59 AB [id number]) Subjective Physical Therapy Visit Type Type Initial Evaluation Visit Start Time 14:35 Visit Stop Time 15:17 Total Visit Minutes 42 Number of STUDIO PRODUCER Visits 0 Physical Therapy Visit Comments Patient Comments pt agreeable to do PT Therapy Pain Assessment Pain Present Pain Present Denied Pain M4 PT-IP Mobility and Gait Start: 02/02/19 17:44 Freq: NEEDED Status: Active Protocol: Document 02/02/19 14:35 AB (Rec: 02/02/19 17:59 AB [id number]) PT-Bed Mobility Assessment Supine to Sit Supine to Sit Maximum Assistance 1 Person Assistance Sit to Supine Sit to Supine Minimal Assistance PT-Transfer Assessment Sit to and From Stand Sit to and from Stand Moderate Assistance 1 Person Assistance Equipment Transfer Assistive Device Gait Belt Front Wheeled Walker Orthotic/Prosthetic Devices or Brace: No Transfers Transfer Destination Bed Chair Transfer Technique pt ambulated using FWW Transfer Ability Level of Assist Minimal Assistance Moderate Assistance 1 Person Assistance Use of Upper Extremities Comments Mobility Comments pt found sitting on chair and agreed to do PT. pt completed sit to stand mod A and cues. requires mod A for steadiness with initial standing. pt ambulated towards the bed ~ 15 ft. completed sit to supine min A and cues. attempted supine to sit x 3 reps. unable to complete on first 2 attempts. instructed pt on log roll bed mobility on 3rd attempt and pt completed with max A and max cues. pt completed sit to stand from EOB mod A and ambulated back to the chair min A and cues using FWW ~ 15 ft. positioned pt on chair. chair alarm on. call light and table placed within reach. Gait Assessment Gait Gait Assistance Required: Minimum Assistance Distance (Feet) 15 Able to Maintain Weight Bearing Status Yes During Gait Assistive Devices Assistive Device Gait Belt Front Wheeled Walker Orthotic/Prosthetic Devices or Brace: No Gait Deviations General Gait Pattern Antalgic Decreased Stride Length Decreased Feet Clearance Factors Limiting Gait Function Factors Limiting Gait Function Decreased Activity Tolerance Decreased Strength Difficulty Following Directions Poor Balance Poor Safety Awareness Comments Gait Comments pt ambulated in the room 15ft x 2 using FWW min A and cues. PT-Balance Assessment Sitting Balance and Reactions Static Sitting Balance Ability Good Dynamic Sitting Balance Ability Fair Standing Balance and Reactions Static Standing Balance Ability Fair Dynamic Standing Balance Ability Fair Device Used FWW M5 PT-IP Objective Assessments Start: 02/02/19 17:44 Freq: NEEDED Status: Active Protocol: Document 02/02/19 14:35 AB (Rec: 02/02/19 17:59 AB [id number]) Orientation Orientation/Cognition Level of Alertness Alert Orientation Name Place Situation Safety Awareness Decreased Safety Awareness Memory Description Short Term Impaired Comments pt requiring increase time to respond to questions and needs repetitions of instructions. pt stated that it is hard for him to think at this time. Gross Range of Motion Lower Extremity ROM Assessment Within Functional Limits Strength Lower Extremity Strength Hip 4-/5 Knee 4-/5 Coordination Assessment Gross Coordination Gross Coordination WNL Sensation Assessment Sensation Gross Sensation WNL Muscle Tone Muscle Tone WNL Yes M6 PT-IP Treatment Start: 02/02/19 17:44 Freq: NEEDED Status: Active Protocol: Document 02/02/19 14:35 AB (Rec: 02/02/19 17:59 AB [id number]) Physical Therapy Treatment Education Education Provided Safety M7 PT-IP Assessment and Plan Start: 02/02/19 17:44 Freq: NEEDED Status: Active Protocol: Document 02/02/19 14:35 AB (Rec: 02/02/19 17:59 AB [id number]) PT Summary Assessment and Plan Potential Rehabilitation Potential Fair Status of Condition at Evaluation Evolving Summary Impairments Pain ROM Strength Balance Cognition Bed Mobility Transfers Gait Activity Tolerance Assessment Summary pt requiring max A with bed mobility and min/mod A for transfers and ambulation using FWW. pt also presents with decrease activity tolerance affecting mobility and safety. pt lives alone but at this time requires 24/7 assist. pt will require SNF rehab to improve strength and mobility. will continue to work on goals and assess progress. Goals Bed Mobility Goal Standby Assistance Transfer Goal Standby Assistance Front Wheeled Walker Gait Goal Standby Assistance Front Wheel Walker Gait Distance 150 Other Goals up/down 2 steps without rail / SPC SBA up/down 20 steps using bilateral rails SBA Days to Meet Goals 10 Frequency of Treatment Frequency Of Treatment Once a Day Treatment Plan Physical Therapy Treatment Plan Bed Mobility Training Transfer Training Gait Training Therapeutic Exercise Balance Retraining Discharge Planning Neuromuscular Re-ed Manual Therapy Other Recommendations and Next Treatment bed mobility, ambulation Focus Recommendations To Nursing Amount of Assist Needed 1 Person Assist Discharge Recommendations PT Discharge Recommendations SNF Rehab
--- NOTE | 2019-02-02 15:08 | CM.DANOTE ---
Addendum entered by Gladis Daley LPN 02/02/19 15:34: Met now with pt and his sister Sheila. Introduced self and role. Pt confirms that his PCP is Dr. Sher (?sp..he is unsure of the spelling) at a clinic in [facility]. Oncologist is Dr. Orourke and he has been seeing him in [facility]. He says he just discovered that Dr. Orourke also has an [place] office ([facility]). He has only recently moved into his own place in [place] after staying with one of his sisters. Before this he was living in [place]. He moved to [facility] in order to have surgery in [place] to treat his renal cell carcinoma. All six of his sisters live in the surrounding area: [facility] and down to [facility]. All of them are expected to be here later this evening. Agreed to check in tomorrow as more is known and follow for d/c issues and options. Original Note: Discharge Planning/Care Management DCP: assessment: Case received, EMR reviewed. Discussed in Team Rounds. Pt is a 73 year old male who admitted early this morning to care of hospitalist team. SEXUAL ABUSE COUNSELLOR Francesca Orourke did H&P. Hosptialist Dr. Bryan is following pt today and notes need to obtain updated information from pt's oncologist Dr. Orourke. PCP: unknown at this time. Payer: Medicare and [employer]. Pt is undergoing treatment for renal cell carcinoma and has been on new chemotherapy treatment since 01/21/19. Per report his overall ability to function as markedly declined in last 5 days. OT was ordered and will see pt tomorrow. P: check in with pt as more is known and follow for d/c issus and options. CM Discharge Assessment Start: 02/02/19 15:06 Freq: Status: Active Protocol: Document 02/02/19 15:06 ITV (Rec: 02/02/19 15:08 ITV [id number]) Discharge Planning Assessment Advance Directives? No History Provided By Medical Record Has Patient been admitted in last 30 No days? Prior Living Arrangements Apartment/Condo Household Members none Is patient alert and oriented? Yes Review Status In Process
--- NOTE | 2019-02-02 16:39 | P.PN_ITS ---
Subjective Date Patient Seen: 02/02/19 Time Patient Seen: 08:50 Interval history: This is a 73-year-old male who presented with generalized weakness over night and was evaluated earlier today. He has a past medical history of hypertension hyperlipidemia, chronic kidney disease (baseline cr eatinine 2.1), and renal cell carcinoma status post left nephrectomy in December of 2017 with development of lung metastases biopsy-proven per patient's oncologist Dr. Goins. He was recently started on Pembrolizumab and axitinib a few weeks ago and has had profound weakness worsening since then and a vague loss of appetite. Today he remains profoundly weak, but able to take p.o. intake. Today he was unable to ambulate for me, so Physical therapy will assess the patient prior to discharge. Exam Vital Signs (past 8 hours): - 02/02/19 12:00 02/02/19 16:00 Temperature 97.9 F 97.5 F L Pulse Rate 73 62 Respiratory Rate 19 20 Blood Pressure 153/94 H 156/84 H Pulse Oximetry 96 Oxygen Delivery Method Room Air Oxygen Flow Rate 0 Objective Labs Result Diagrams: 02/02/19 05:28 02/02/19 05:28 Labs: Laboratory Results - last 24 hr 02/01/19 02/01/19 02/01/19 22:23 22:23 22:23 WBC 8.8 RBC 4.93 Hgb 15.1 Hct 43.6 MCV 88.5 MCH 30.7 MCHC 34.7 RDW 14.6 Plt Count 247 Neut % (Auto) 66.8 Lymph % (Auto) 20.5 L [place] % (Auto) 11.2 Eos % (Auto) 0.9 L Baso % (Auto) 0.6 Neut # (Auto) 5900 Lymph # (Auto) 1800 [place] # (Auto) 1000 H Eos # (Auto) 100 Baso # (Auto) 100 Sodium 136 L Potassium 4.5 Chloride 105 Carbon Dioxide 20 L BUN 38 H Creatinine 2.40 H Estimated GFR 26.8 L BUN/Creatinine Ratio 15.8 Glucose 81 Calcium 9.2 Procalcitonin 0.07 Urine Color Urine Appearance Urine pH Ur Specific [place] Urine Protein Urine Glucose (UA) Urine Ketones Urine Occult Blood Urine Nitrate Urine Bilirubin Urine Urobilinogen Ur Leukocyte Esterase Urine RBC Urine WBC Urine Bacteria Hyaline Casts Granular Casts Ur Culture Indicated? 08/02/02/19 02/02/19 23:23 05:28 05:28 WBC 8.8 RBC 4.71 Hgb 14.4 Hct 42.3 MCV 89.8 MCH 30.5 MCHC 33.9 RDW 14.2 Plt Count 213 Neut % (Auto) 72.3 Lymph % (Auto) 15.7 L [place] % (Auto) 10.1 Eos % (Auto) 1.3 L Baso % (Auto) 0.6 Neut # (Auto) 6300 Lymph # (Auto) 1400 [place] # (Auto) 900 Eos # (Auto) 100 Baso # (Auto) 100 Sodium 137 Potassium 4.3 Chloride 106 Carbon Dioxide 22 BUN 34 H Creatinine 2.40 H Estimated GFR 26.8 L BUN/Creatinine Ratio 14.2 Glucose 106 Calcium 8.4 Procalcitonin Urine Color Yellow Urine Appearance Clear Urine pH 5.0 Ur Specific [place] 1.020 Urine Protein Trace H Urine Glucose (UA) Negative Urine Ketones Negative Urine Occult Blood 3+ H Urine Nitrate Negative Urine Bilirubin Negative Urine Urobilinogen 0.2 Ur Leukocyte Esterase Negative Urine RBC 5-10/hpf H Urine WBC 0-1/hpf Urine Bacteria None seen Hyaline Casts 0-1/lpf Granular Casts 0-1/lpf Ur Culture Indicated? Cult not indicated Assessment & Plan Assessment & Plan narrative: Sean Garcia is a 73-year-old male with a past medical history of hypertension hyperlipidemia, chronic kidney disease (baseline creatinine 2.1), and renal cell carcinoma status post left nephrectomy in December of 2017 who is admitted for failure to thrive and inability to maintain himself secondary to chemotherapy initiation. There is no evidence of infectious etiologies at this time or metabolic abnormalities. Plan for PT/OT evaluation Discussed with Patient's oncologist office and agree with hold chemotherapy medications for now, with outpatient follow up closely after discharge. Continue to monitor electrolytes while inpatient. Time Spent With Patient Time with patient: 25 - 35 minutes Quality VTE Deep Vein Thrombosis/Pulmonary Embolism Present on Admission: No
[2019-02-02] MEDS: MULTIVITAMIN 1 TABLET 1 TAB PO (16:41)
[2019-02-02] MEDS: CYANOCOBALAMIN (VITAMIN B-12) 100 MCG TABLET PO (16:41)
[2019-02-02] MEDS: ASCORBIC ACID 500 MG TABLET PO (16:41)
[2019-02-02] MEDS: SIMVASTATIN 20 MG TABLET PO (20:32)
[2019-02-03] VITALS (10 sets, daily range): BP systolic 140–160; BP diastolic 85–99; PULSE 64–79; RESP 14–18; TEMP 36.7–37.4; O2SAT 96–98
--- NOTE | 2019-02-03 01:28 | PC.NURSE ---
Patient is oriented except to day of week although responses are delayed. Breath sounds diminished but CTA with RA sat of 97%. HRR with elevated BP of 143/92. Denies nausea. BT present and abdomen is soft; denies flatus. Voiding per urinal but is also spilling urine, dribbling and sometimes incontinent of urine. Denies dysuria, frequency but does have some urgency. Is able to turn self in bed. Needing 1 assist + walker when getting out of bed. Denies pain. States he is feeling better than on admit. Currently on chemo precautions as last chemo drug was taken 02/01 in the morning. Fall risk score is high and bed alarm is activated.
[2019-02-03 09:06] LABS: BUN Creatinine Ratio 13.2 (6-22); Blood Urea Nitrogen 29 mg/dL (9-20); Calcium 8.6 mg/dL (8.4-10.2); Carbon Dioxide 21 mmol/L (22-32); Chloride 106 mmol/L (98-107); Estimated Glomerular Filt Rate 29.7 mL/min (>60); Glucose 92 mg/dL (80-110); HEMOLYSIS < 15 (0-50); Magnesium 2.1 mg/dL (1.6-2.3); Potassium 4.4 mmol/L (3.4-5.1); Sodium 135 mmol/L (137-145)
[2019-02-03] MEDS: SODIUM CHLORIDE 0.45% 1,000 ML 100 ML IV (09:11)
[2019-02-03] MEDS: MULTIVITAMIN 1 TABLET 1 TAB PO (09:13)
[2019-02-03] MEDS: METOPROLOL ER 25 MG TABLET 12.5 MG PO (09:13)
[2019-02-03] MEDS: HEPARIN 5,000 UNIT/ML VIAL 5000 UNIT SUBCUT ×2 (09:13→21:33)
[2019-02-03] MEDS: ASCORBIC ACID 500 MG TABLET PO (09:13)
--- NOTE | 2019-02-03 11:19 | CM.DPC ---
Addendum entered by Gladis Daley LPN 02/03/19 14:00: November/[facility] formally accepts pt for expected admission tomorrow, pvt pay as per discussion. Soniya/[facility] will be following up tomorrow. Addendum entered by Gladis Daley LPN 02/03/19 13:39: Have spoken further with Sheila. She confirms she is POA for pt and says she has now conferred with rest of family and all are supportive of [facility] plan. She will plan to be present when he admits to the facility so as to help with snf paperwork and discussions of the POC at the snf setting. She does say pt had not been doing well even when he moved into his apartment and last night he and his sisters had started a discussion re Advanced directives and what his goals and choices might be. She said he told them he wanted to rely on them to guide him in all of this. A POLST form is now left for Sheila for future planning and perhaps especially when pt follows up with Oncology team. Pt is now updated, appears very relieved that all is settled, at least for tomorrow. Dr. Bryan is updated and will plan for a d/c tomorrow to the facility. Will start PASRR in prep for same. Have call out to confirm acceptance for [facility] and will await final ok. OT Cassidy is now seeing pt and will include a cognitive assessment as part of her evaluation. Addendum entered by Gladis Daley LPN 02/03/19 13:19: Received a vm from Sheila asking about financial issues re snf stay vs hiring a 24 hour nurse at home. Left her a vm in reply re financials re snf setting and pvt agency help: typically home care aides, not nurses. Will be following closely. Addendum entered by Gladis Daley LPN 02/03/19 13:13: Met now with pt for further discussion re d/c plan. Pt remains slow in his thinking process, clearly struggles to focus. Went over information and have now identified a tentative plan for [facility] under pvt pay with plan for a return to home with HH and perhaps pvt caregivers after snf stay. Pt says the fact that [facility] is in [place] is more important to him at this point than najera difference. He will discuss this further with Sheila this evening. Formal referral is now in to Letha/[facility] and vm is left for her. Addendum entered by Gladis Daley LPN 02/03/19 12:16: Checked in with pt as planned as he was finalizing a session with PT Karen. Pt says he has no intention of going to any of his sisters' homes; he very much wants to d/c to his apt and would like HH. Pt says he is aware of what HH can and cannot provide as he had this after his surgery in [place]. Asked about specifics of his apt. He has 2 floors, the bathroom is on the second floor and with multiple steps with bilateral wrought iron rails on each side. Pt has unclear ideas re how he might manage his basic care needs and while he is mobilizing slowly in the room he cannot at this point get out of bed without moderate assist. OT will see pt later this afternoon. Karen and this DCPlanner then had conversation with Dr. Bryan. He notes that at this point he does not see that pt has a safe d/c plan as he cannot safely go home with the stairs. He says he is hopeful that pt will be stronger by tomorrow but it is unclear how many days it may take for the affects of the chemo to clear. He is agreeable to HH plan IF pt does better tomorrow, otherwise may need to heed recommendation of the therapy team for snf setting. Have now spoken with pt's sister Sheila. She will be here after work to talk more with pt but does say that the sisters had anticipated a likely snf recovery/rehab stay. Updated her on the OBS status (per [facility] R[facility] Meneses pt was given [facility] documentation re this status this morning) Sheila does say that pt has the funds to pay for a short snf stay if needed. P: talk more with pt and follow accordingly. Home with HH tomorrow IF pt shows marked improvement vs snf consideration. Will also discuss pvt caregiving agency option. Fact finding in prep for meeting with pt shows [facility]: $375 day for double room. Therapy under the PT B benefit. [facility]: $321 day for double room. $343 day for a private room if available. Original Note: DCP: continued: EMR reviewed and case discussed in Team Rounds. Dr. Bryan reports he has spoken with pt's oncologist and the plan is to hold chemo treatment for now and then to followup with oncology in the outpt setting for further discussion of treatment options. OBS admission status continued: confirmed by [facility] ROCK Meneses. OT will be seeing pt today as will PT in followup. Will check in with pt and follow.
--- NOTE | 2019-02-03 12:22 | PT.IPTN ---
Current Diagnoses Weakness (02/02/19) Physical Therapy Treatment Note M2 PT-IP Current Condition Start: 02/02/19 17:44 Freq: NEEDED Status: Active Protocol: Document 02/02/19 14:35 AB (Rec: 02/02/19 17:59 AB [id number]) Physical Therapy Current Condition Current Condition Evaluation Date 02/02/19 Treatment Diagnosis renal CA; failure to thrive; dehydration; generalized weakness Onset Date 02/02/19 Precautions Other Precautions contact chemo precaution M3 PT-IP Subjective Start: 02/02/19 17:44 Freq: NEEDED Status: Active Protocol: Document 02/03/19 11:52 NFW (Rec: 02/03/19 12:21 NFW [id number]) Subjective Physical Therapy Visit Type Type Treatment Note Visit Start Time 10:48 Visit Stop Time 11:38 Total Visit Minutes 50 Number of CANE LOADER Visits 0 Physical Therapy Visit Comments Patient Comments Patient seen sitting in chair. Agreeble to do PT. Has no complaints of pain. Patient Goals To be able to walk with SPC vs current FWW Therapy Pain Assessment Pain Present Pain Present Denied Pain M4 PT-IP Mobility and Gait Start: 02/02/19 17:44 Freq: NEEDED Status: Active Protocol: Document 02/03/19 11:52 NFW (Rec: 02/03/19 12:21 NFW [id number]) PT-Bed Mobility Assessment Rolling Type of Rolling Roll to Left Level of Assist Moderate Assistance 1 Person Assistance Supine to Sit Supine to Sit Moderate Assistance 1 Person Assistance Bedrails Sit to Supine Sit to Supine Moderate Assistance 1 Person Assistance Scooting Scooting to Edge of Bed Minimal Assistance Scooting Up and Down in Bed Minimal Assistance PT-Transfer Assessment Sit to and From Stand Sit to and from Stand Minimal Assistance 1 Person Assistance Use of Upper Extremities Equipment Transfer Assistive Device Gait Belt Front Wheeled Walker Orthotic/Prosthetic Devices or Brace: No Transfers Transfer Destination Bed Chair Transfer Ability Level of Assist Minimal Assistance Moderate Assistance 1 Person Assistance Use of Upper Extremities Comments Mobility Comments Patient performed sit to stand x3 with constant cuing, used UE extensively but able to perform on his own. Difficulty in scooting hips forward in chair then lifting weight relying on UEs. Ambulated to bed with FWW, CGA . Up and down from bed, again requiring verbal cuing throughout. Some assist with placement of LEs, otherwise accomplished task relying on use of bed rails with UEs. Does best with full bed roll to left then using UE to sit. Gait Assessment Gait Gait Assistance Required: Contact Guard Assist Distance (Feet) 90 Able to Maintain Weight Bearing Status Yes During Gait Assistive Devices Assistive Device Gait Belt Front Wheeled Walker Orthotic/Prosthetic Devices or Brace: No Gait Deviations General Gait Pattern Decreased Stride Length Decreased Feet Clearance Step-to Gait Factors Limiting Gait Function Factors Limiting Gait Function Decreased Activity Tolerance Decreased Strength Incoordination Limited Range of Motion Poor Balance Comments Gait Comments Pt ambulated 60' in room then another 30' with FWW, CGA. Cuing for upright posture. Stair Climbing Assessment Comments Stair Climbing Comments Pt reports that he does have stairs inside of his apartment ; 7 steps, a platform then another 6 steps, handrails jarrett . PT-Balance Assessment Sitting Balance and Reactions Static Sitting Balance Ability Good M5 PT-IP Objective Assessments Start: 02/02/19 17:44 Freq: NEEDED Status: Active Protocol: Document 02/03/19 11:52 NFW (Rec: 02/03/19 12:21 NFW [id number]) Orientation Orientation/Cognition Level of Alertness Alert M6 PT-IP Treatment Start: 02/02/19 17:44 Freq: NEEDED Status: Active Protocol: Document 02/02/19 14:35 AB (Rec: 02/02/19 17:59 AB [id number]) Physical Therapy Treatment Education Education Provided Safety M7 PT-IP Assessment and Plan Start: 02/02/19 17:44 Freq: NEEDED Status: Active Protocol: Document 02/03/19 11:52 NFW (Rec: 02/03/19 12:21 NFW [id number]) PT Summary Assessment and Plan Summary Impairments ROM Strength Balance Coordination Cognition Bed Mobility Transfers Gait Activity Tolerance Progress Towards Goals Progressing Toward Goals Assessment Summary Bed mobilities now mod assist vs. max. Improved endurance and strength as patient walked 60' then another 30'. Recommend increasing PT to BID with the goal of patient returning to his apartment with home health assist. Will need to assess ability to ascend and descend stairs. Frequency of Treatment Frequency Of Treatment Twice a Day Treatment Plan Physical Therapy Treatment Plan Bed Mobility Training Transfer Training Gait Training Therapeutic Exercise Balance Retraining Discharge Planning Neuromuscular Re-ed Manual Therapy Other Recommendations and Next Treatment Stairs when appropriate. Focus Recommendations To Nursing Amount of Assist Needed 1 Person Assist Discharge Recommendations PT Discharge Recommendations Home Health
--- NOTE | 2019-02-03 12:54 | PM.PN.1 ---
Subjective Date Patient Seen: 02/03/19 Time Patient Seen: 08:10 Interval history: This is a 73-year-old male who presented with generalized weakness. He has a past medical history of hypertension hyperlipidemia, chronic kidney disease (baseline creatinine 2.1), and renal cell carcinoma status post left nephrectomy in December of 2017 with development of lung metastases biopsy-proven per patient's oncologist Dr. Goins. He was recently started on Pembrolizumab and axitinib a few weeks ago and has had profound weakness worsening since then and a vague loss of appetite. Today he remains weak but is improving. He feels weak diffusely but his appetite did improve. He denies headaches, vision changes, fevers, chills, chest pain, shortness of breath, nausea, vomiting, abdominal pain, lower extremity swelling. PT had recommended SNF rehab however patient is not in agreement with this plan currently. He would like to go home. Other options include living with family however patient is resistant at this time to that plan as well. His home includes stairs for which he is unable to safely navigate at this time. All other systems reviewed with the patient and are negative unless otherwise stated. Exam Vital Signs (past 8 hours): - 02/03/19 05:40 02/03/19 07:40 02/03/19 09:00 Temperature 98.5 F 98.7 F Pulse Rate 64 69 Respiratory Rate 18 18 Blood Pressure 140/91 H 156/85 H Pulse Oximetry 98 97 97 02/03/19 09:13 Temperature Pulse Rate 69 Respiratory Rate Blood Pressure 156/85 H Pulse Oximetry Oxygen Delivery Method Room Air Oxygen Flow Rate 0 Narrative Exam Narrative: GENERAL APPEARANCE: Well developed, well nourished, in no acute distress. Elderly male sitting in bedside chair. SKIN: Inspection of the skin reveals no rashes, ulcerations or petechiae. HEENT: The sclerae were anicteric and conjunctivae were pink and moist. Extraocular movements were intact and pupils were equal, round, and reactive to light with normal accommodation. External inspection of the ears and nose showed no scars, lesions, or masses. Lips, teeth, and gums showed normal mucosa. The oral mucosa, hard and soft palate, tongue and posterior pharynx were normal. NECK: Supple and symmetric. There was no thyroid enlargement, and no tenderness, or masses were felt. CHEST: Normal AP diameter and normal contour without any kyphoscoliosis. LUNGS: Auscultation of the lungs revealed no wheezes, rhonchi, or rales. CARDIOVASCULAR: There was a regular rate and rhythm without any murmurs, gallops, rubs. The carotid pulses were normal and 2+ bilaterally without bruits. Peripheral pulses were 2+ and symmetric. ABDOMEN: Soft and nontender with normal bowel sounds. No ascites was noted. MUSCULOSKELETAL: Gait as noted belowl. There was no tenderness or effusions noted. Muscle strength and tone were normal. EXTREMITIES: No cyanosis, clubbing or edema. NEUROLOGIC: Alert and oriented x 3. Normal affect. Slowed and difficult gait. PSYCHIATRIC: Somewhat slowed and flat responses. Irritable at times during the interview. Objective Labs Result Diagrams: 02/02/19 05:28 02/03/19 08:20 Labs: Laboratory Results - last 24 hr 02/03/19 08:20 Sodium 135 L Potassium 4.4 Chloride 106 Carbon Dioxide 21 L BUN 29 H Creatinine 2.20 H Estimated GFR 29.7 L BUN/Creatinine Ratio 13.2 Glucose 92 Calcium 8.6 Magnesium 2.1 Assessment & Plan Assessment & Plan narrative: Sean Garcia is a 73-year-old male with a past medical history of hypertension hyperlipidemia, chronic kidney disease (baseline creatinine 2.1-2.2), and renal cell carcinoma status post left nephrectomy in December of 2017 who is admitted for failure to thrive and inability to maintain himself secondary to chemotherapy initiation. There is no evidence of infectious etiologies at this time or metabolic abnormalities. 1. Status post renal cell carcinoma immune therapy side effect, acute, present on admission - recent therapy initated included pembrolizumab and axitinib. These likely lead to his profound weakness. These medications are being held so that he may regain strength, he is currently still too weak to navigate stairs which is his impediment to discharge home. -continue to work with md do resident urgent care, PT, MEDICAL DOCTOR MD/MEDICAL DIRECTOR and family to come up with safe discharge. - stop IV fluids and encourage PO intake 2. Essential hypertension, chronic, present on admission - continue metoprolol 12.5 mg daily 3. Hyperlipidemia, chronic - continue home simvastatin as inpatient. 4. Chronic Kidney disease, baseline Cr 2.1 - 2.2. Admission Cr 2.4 now at baseline. - will stop daily blood draws as electrolytes and Cr are now stable. Time Spent With Patient Time with patient: 25 - 35 minutes Quality VTE Deep Vein Thrombosis/Pulmonary Embolism Present on Admission: No
--- NOTE | 2019-02-03 14:00 | PT.IPTN ---
Current Diagnoses Weakness (02/02/19) Physical Therapy Treatment Note M2 PT-IP Current Condition Start: 02/02/19 17:44 Freq: NEEDED Status: Active Protocol: Document 02/02/19 14:35 AB (Rec: 02/02/19 17:59 AB [id number]) Physical Therapy Current Condition Current Condition Evaluation Date 02/02/19 Treatment Diagnosis renal CA; failure to thrive; dehydration; generalized weakness Onset Date 02/02/19 Precautions Other Precautions contact chemo precaution M3 PT-IP Subjective Start: 02/02/19 17:44 Freq: NEEDED Status: Active Protocol: Document 02/03/19 14:00 AB (Rec: 02/03/19 16:32 AB [id number]) Subjective Physical Therapy Visit Type Type Treatment Note Visit Start Time 14:00 Visit Stop Time 14:27 Total Visit Minutes 27 Number of PHYSICIAN ALLERGIST IMMUNOLOGIST Visits 0 Physical Therapy Visit Comments Patient Comments pt agreeable to do PT Therapy Pain Assessment Pain Present Pain Present Denied Pain M4 PT-IP Mobility and Gait Start: 02/02/19 17:44 Freq: NEEDED Status: Active Protocol: Document 02/03/19 14:00 AB (Rec: 02/03/19 16:32 AB [id number]) PT-Bed Mobility Assessment Sit to Supine Sit to Supine Moderate Assistance PT-Transfer Assessment Sit to and From Stand Sit to and from Stand Moderate Assistance 1 Person Assistance Use of Upper Extremities Equipment Transfer Assistive Device Gait Belt Front Wheeled Walker Orthotic/Prosthetic Devices or Brace: No Transfers Transfer Destination Toilet Transfer Technique pt ambulated to the toilet Transfer Ability Level of Assist Moderate Assistance Use of Upper Extremities Comments Mobility Comments pt requested to use the toilet . completed sit <>stand x 2 reps requiring mod A and max cues for techniques. pt ambulated towards the toilet using FWW min to mod A and cues. pt was able to maintain standing min A using FWW for support while using the toilet . pt ambulated out of the toilet and agreed to walk more . pt completed ambulation in the hallway but requested to go back to bed after. pt completed sit to supine mod A to elevate LE up to the bed. assisted with positionining. call light and table placed within reach. bed alarm on. Gait Assessment Gait Gait Assistance Required: Minimum Assistance Moderate Assistance Distance (Feet) 50 Able to Maintain Weight Bearing Status Yes During Gait Assistive Devices Assistive Device Gait Belt Front Wheeled Walker Orthotic/Prosthetic Devices or Brace: No Gait Deviations General Gait Pattern Antalgic Decreased Stride Length Decreased Feet Clearance Flexed Trunk Step-to Gait Factors Limiting Gait Function Factors Limiting Gait Function Decreased Activity Tolerance Decreased Strength Difficulty Following Directions Poor Balance Poor Safety Awareness Comments Gait Comments pt completed ambulation in the hallway ~ 50 ft using FWW initially requiring min A but requiring mod A midway of ambulation. presents with shuffling gait. pt continues to require increase time to answer of follow directions. pt requires cues and assist to manuever FWW as pt tends to be too close to the wall or almost going to run into things. M5 PT-IP Objective Assessments Start: 02/02/19 17:44 Freq: NEEDED Status: Active Protocol: Document 02/03/19 11:52 NFW (Rec: 02/03/19 12:21 NFW [id number]) Orientation Orientation/Cognition Level of Alertness Alert M6 PT-IP Treatment Start: 02/02/19 17:44 Freq: NEEDED Status: Active Protocol: Document 02/03/19 14:00 AB (Rec: 02/03/19 16:32 AB [id number]) Physical Therapy Treatment Education Education Provided Safety M7 PT-IP Assessment and Plan Start: 02/02/19 17:44 Freq: NEEDED Status: Active Protocol: Document 02/03/19 14:00 AB (Rec: 02/03/19 16:32 AB [id number]) PT Summary Assessment and Plan Potential Rehabilitation Potential Fair Summary Impairments Pain ROM Strength Balance Coordination Sensation Tone Cognition Bed Mobility Transfers Gait Activity Tolerance Progress Towards Goals Slow Progress due to Medical Issues Slow Progress due to Activity Tolerance Assessment Summary pt requires mod A with mobility and continues to have decrease activity tolerance. pt also requires increase time to process instructions and to answer questions. pt has decrease safety awareness affecting mobility. pt needs 24/7 asssist at this time and will need SNF rehab to improve strength and function. if pt goes home, will need 24/7 care and homehealth services. Goals Bed Mobility Goal Standby Assistance Transfer Goal Standby Assistance Front Wheeled Walker Gait Goal Standby Assistance Front Wheel Walker Gait Distance 150 Other Goals up/down 2 steps without rail / SPC SBA up/down 20 steps using bilateral rails SBA Days to Meet Goals 10 Frequency of Treatment Frequency Of Treatment Twice a Day Treatment Plan Physical Therapy Treatment Plan Bed Mobility Training Transfer Training Gait Training Therapeutic Exercise Balance Retraining Discharge Planning Neuromuscular Re-ed Manual Therapy Other Recommendations and Next Treatment ambulation, stair climbing Focus Recommendations To Nursing Amount of Assist Needed 1 Person Assist Discharge Recommendations PT Discharge Recommendations SNF Rehab
--- NOTE | 2019-02-03 14:27 | PT.IPTN ---
Current Diagnoses Weakness (02/02/19) Physical Therapy Treatment Note M2 PT-IP Current Condition Start: 02/02/19 17:44 Freq: NEEDED Status: Active Protocol: Document 02/02/19 14:35 AB (Rec: 02/02/19 17:59 AB [id number]) Physical Therapy Current Condition Current Condition Evaluation Date 02/02/19 Treatment Diagnosis renal CA; failure to thrive; dehydration; generalized weakness Onset Date 02/02/19 Precautions Other Precautions contact chemo precaution M3 PT-IP Subjective Start: 02/02/19 17:44 Freq: NEEDED Status: Active Protocol: Document 02/03/19 14:27 AB (Rec: 02/03/19 16:32 AB [id number]) Subjective Physical Therapy Visit Type Type Treatment Note Visit Start Time 14:27 Visit Stop Time 14:52 Total Visit Minutes 25 Number of WILLOW WORKER Visits 0 Physical Therapy Visit Comments Patient Comments pt agreeable to do PT Therapy Pain Assessment Pain Present Pain Present Denied Pain M4 PT-IP Mobility and Gait Start: 02/02/19 17:44 Freq: NEEDED Status: Active Protocol: Document 02/03/19 14:27 AB (Rec: 02/03/19 16:32 AB [id number]) PT-Bed Mobility Assessment Sit to Supine Sit to Supine Moderate Assistance PT-Transfer Assessment Sit to and From Stand Sit to and from Stand Moderate Assistance 1 Person Assistance Use of Upper Extremities Equipment Transfer Assistive Device Gait Belt Front Wheeled Walker Orthotic/Prosthetic Devices or Brace: No Transfers Transfer Destination Toilet Transfer Technique pt ambulated to the toilet Transfer Ability Level of Assist Moderate Assistance Use of Upper Extremities Comments Mobility Comments pt requested to use the toilet . completed sit <>stand x 2 reps requiring mod A and max cues for techniques. pt ambulated towards the toilet using FWW min to mod A and cues. pt was able to maintain standing min A using FWW for support while using the toilet . pt ambulated out of the toilet and agreed to walk more . pt completed ambulation in the hallway but requested to go back to bed after. pt completed sit to supine mod A to elevate LE up to the bed. assisted with positionining. call light and table placed within reach. bed alarm on. Gait Assessment Gait Gait Assistance Required: Minimum Assistance Moderate Assistance Distance (Feet) 50 Able to Maintain Weight Bearing Status Yes During Gait Assistive Devices Assistive Device Gait Belt Front Wheeled Walker Orthotic/Prosthetic Devices or Brace: No Gait Deviations General Gait Pattern Antalgic Decreased Stride Length Decreased Feet Clearance Flexed Trunk Step-to Gait Factors Limiting Gait Function Factors Limiting Gait Function Decreased Activity Tolerance Decreased Strength Difficulty Following Directions Poor Balance Poor Safety Awareness Comments Gait Comments pt completed ambulation in the hallway ~ 50 ft using FWW initially requiring min A but requiring mod A midway of ambulation. presents with shuffling gait. pt continues to require increase time to answer of follow directions. pt requires cues and assist to manuever FWW as pt tends to be too close to the wall or almost going to run into things. M5 PT-IP Objective Assessments Start: 02/02/19 17:44 Freq: NEEDED Status: Active Protocol: Document 02/03/19 11:52 NFW (Rec: 02/03/19 12:21 NFW [id number]) Orientation Orientation/Cognition Level of Alertness Alert M6 PT-IP Treatment Start: 02/02/19 17:44 Freq: NEEDED Status: Active Protocol: Document 02/03/19 14:27 AB (Rec: 02/03/19 16:32 AB [id number]) Physical Therapy Treatment Education Education Provided Safety M7 PT-IP Assessment and Plan Start: 02/02/19 17:44 Freq: NEEDED Status: Active Protocol: Document 02/03/19 14:27 AB (Rec: 02/03/19 16:32 AB [id number]) PT Summary Assessment and Plan Potential Rehabilitation Potential Fair Summary Impairments Pain ROM Strength Balance Coordination Sensation Tone Cognition Bed Mobility Transfers Gait Activity Tolerance Progress Towards Goals Slow Progress due to Medical Issues Slow Progress due to Activity Tolerance Assessment Summary pt requires mod A with mobility and continues to have decrease activity tolerance. pt also requires increase time to process instructions and to answer questions. pt has decrease safety awareness affecting mobility. pt needs 24/7 asssist at this time and will need SNF rehab to improve strength and function. if pt goes home, will need 24/7 care and homehealth services. Goals Bed Mobility Goal Standby Assistance Transfer Goal Standby Assistance Front Wheeled Walker Gait Goal Standby Assistance Front Wheel Walker Gait Distance 150 Other Goals up/down 2 steps without rail / SPC SBA up/down 20 steps using bilateral rails SBA Days to Meet Goals 10 Frequency of Treatment Frequency Of Treatment Twice a Day Treatment Plan Physical Therapy Treatment Plan Bed Mobility Training Transfer Training Gait Training Therapeutic Exercise Balance Retraining Discharge Planning Neuromuscular Re-ed Manual Therapy Other Recommendations and Next Treatment ambulation, stair climbing Focus Recommendations To Nursing Amount of Assist Needed 1 Person Assist Discharge Recommendations PT Discharge Recommendations SNF Rehab
--- NOTE | 2019-02-03 14:30 | OT.IP.EVAL ---
Current Diagnoses Weakness (02/02/19) Past Medical History (Last Reviewed 02/02/19 @ 06:39 by Obed Grant DO) Hx of blood clots (Chronic) BPH (benign prostatic hyperplasia) (Chronic) Hyperlipidemia (Chronic) Essential hypertension (Chronic) Renal cell carcinoma (Acute) History of prostate cancer (Inactive) Surgical History (Last Reviewed 02/02/19 @ 06:39 by Obed Grant DO) H/O left nephrectomy (Chronic) S/P TURP (Resolved) Occupational Therapy Inpatient Evaluation/Re-Eval M1 PT/OT-IP Prior Functional Status Start: 02/02/19 17:44 Freq: NEEDED Status: Active Protocol: Document 02/03/19 14:30 PJM (Rec: 02/03/19 17:37 PJM [id number]) Medical Review Prior Functional Status Medical History Reviewed Yes Diet/Fluid Consistency Regular Communication WNL Mobility and Gait Pt states that he was independent with ambulation without AD, and able to go up/ down stairs in apt to bedroom and bathroom. Activities of Daily Living and IADL's Pt states he was indep with all self care, IADLS and drove until one week ago. Prior Functional Level (Other details) Pt is a vague historian, no family here to confirm. Pt states 2 of his 6 sisters live nearby. Sheila Nunn is his primary support person. Social History Household Members none Living Arrangements Apartment/Condo Number of Floors (Floors) Two Floors Number of Stairs To Enter/Railing? 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 M2 OT-IP Current Condition Start: 02/02/19 13:34 Freq: Status: Active Protocol: Document 02/03/19 14:30 PJM (Rec: 02/03/19 17:37 PJM [id number]) Occupational Therapy Current Condition Current Condition Evaluation Date 02/03/19 Treatment Diagnosis decr'd self care,mobility, cognition; DX chemo reaction, renal CA, lung mets Diagnosis Onset Date 02/02/19 Post Operative Precautions Other Precautions fall risk, confusion, bed/ chair alarm M3 OT- IP Subjective and Pain Start: 02/02/19 13:34 Freq: Status: Active Protocol: Document 02/03/19 14:30 PJM (Rec: 02/03/19 17:37 PJM [id number]) OT- Subjective Occupational Therapy Visit Type Type Initial Evaluation Visit Start Time 13:32 Visit Stop Time 14:30 Total Visit Minutes 58 Notes Pt drowsy in chair when therapist arrived. Occupational Therapy Visit Comments Patient/Caregiver Goals none verbalized this session OT Pain Assessment Pain When Pain Assessed After Treatment Pain Present Pain Present Denied Pain M4 OT- IP ADL's Start: 02/02/19 13:34 Freq: Status: Active Protocol: Document 02/03/19 14:30 PJM (Rec: 02/03/19 17:37 PJM [id number]) OT [id number] General Evaluation Self-Feeding Ability Standby Assistance Comments OT Self-Feeding Comments Note pt very slow to feed self and dozed off during meal, needs intermittent cues to sustain alertness and encouragement to increase intake. OT ADL-Grooming General Evaluation Grooming Ability Standby Assistance Areas Needing Assistance Face Washing Comments OT Grooming Comments after set up in chair OT ADL-Oral Care Comments Oral Care Comments did not occur this session OT ADL-Dressing General Eval Lower Body Dressing Ability Total Assistance Areas Needing Assistance Socks Assistive Devices Dressing Assistive Devices Elastic Shoe Laces Long Handled Shoe Horn Comments OT Dressing Comments Pt states he normally uses 2 long shoe horns to remove his socks. Pt unable to problem solve this technique today when provided with shoe horns. He is unable to describe how he puts socks on and required total assist with this today. Note pt has elastic laces in his tennis shoes and states he slips them on with long shoe horns. Pants and upper body dressing to be assessed OT ADL-Toileting General Evaluation Toileting Ability Standby Assistance Devices Toileting Assistive Devices Urinal Comments OT Toileting Comments Pt using urinal seated in chair. OT ADL-Bathing Comments OT Bathing Comments to be assessed as activity tolerance improves M5 OT- IP IADL's Start: 02/02/19 13:34 Freq: Status: Active Protocol: Document 02/03/19 14:30 PJM (Rec: 02/03/19 17:37 PJM [email or web address]) OT-Instrumental Activities of Daily Living Deficits IADL Deficits Identified Deficits Home Safety Awareness Awareness of Need for Assistance at Home Decreased Awareness Ability to Problem Solve Emergency Unable to Problem Solve Situations Medication Management Medication Management Comments pt needs assistance due to current cognitive status, he states he was having trouble managing medications at home, but unable to specify Money Management Money Management Comments recommend pt have assistance due to current cognitive status Meal Preparation Meal Preparation Comments pt not able to plan or complete meal prep at present due to cognitive status Hide Dyer Hide Dyer Comments total assist at present Driving Driving Comments pt not safe to drive at present due to very slow speed of processing M6 OT- IP Functional Cognition Start: 02/02/19 13:34 Freq: Status: Active Protocol: Document 02/03/19 14:30 PJM (Rec: 02/03/19 17:37 PJ [email or web address]) Cognitive Factors Limiting Selfcare Function Cognitive Ability Level of Alertness Drowsy Patient Orientation Name Age Birthday Month Year Day of Week Place Attention Span Ability Capable of Focused Attention Unable to Sustain Attention Ability to Follow Commands Able to Follow One Step Commands Memory Description Immediate Impaired Short Term Impaired Safety Awareness Decreased Recall of Precautions Decreased Ability to Apply Precautions Underestimates Need for Assistance Problem Solving Ability Unable to Identify Errors Needs Assist to Identify Solutions Executive Function Ability Unable to Hold Focus Unable to Make Plans Unable to Organize Plans Unable to Remember Details Abstract Thinking Ability Unable to Draw Logical Conclusions Cognitive Tests SLUMS 15/30 Norm is 27/30 Pt had impairments in immediate, short term and working memory. He is unable to do mental math and word generation is slow. Pt unable to place numbers or hands on clock drawing correctly with one perseverative error noted. Cognitive Comments Cognitive Assessment Comments Pt is drowsy with very slow speed of processing noted. He presents with decreased sustained attention to simple self care tasks such as self feeding. He has difficulty following the thread of a conversation with very slow response times to questions. Poor insight noted. OT- Vision and Hearing OT- Hearing Assessment OT- Hearing Assessment WFL OT- Vision Assessment Visual Acuity Glasses For Reading Visual Attentiveness WF Vision Assessment Comments Pt able to read wall clock and standard print without glasses. M7 OT- IP Mobility and Balance Start: 02/02/19 13:34 Freq: Status: Active Protocol: Document 02/03/19 14:30 PJM (Rec: 02/03/19 17:37 PJ [id number]) OT-Transfer Assessment Comments Mobility Comments see P.T. notes, slow motor planning and verbal cues needed for partial stand and to scoot back in chair OT- Gait Assessment Comments Gait Ability Comments see P.T. 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 Strength Hand Dominance Right Comments Strength Comments no focal weakness noted OT- Coordination Assessment Comments Coordination Comments appears WFL OT-Muscle Tone Assessment Muscle Tone WNL Yes OT Sensation Assessment Comments Summary Comments Pt denies deficits, unable to formally assess due to slow speed of processing Edema Edema Absent M9 OT- IP Assessment and Plan Start: 02/02/19 13:34 Freq: Status: Active Protocol: Document 02/03/19 14:30 PJM (Rec: 02/03/19 17:37 PJ [id number]) OT Summary Assessment and Plan Potential Rehabilitation Potential Good Analytic Complexity at Evaluation Low Summary OT Impairments Balance Functional Cognition Functional Mobility Self-Feeding Grooming Dressing Toileting Bathing Toilet Transfers Shower Transfers Assessment Summary Moderate complexity OT assessment completed with extra time need for cognitive assessment. Pt is a 73 yr old male admitted with generalized weakness and profound fatigue with recent chemotherapy for renal CA with lung mets. Pt normally lives alone in 2 story apartment, ambulates without a device and is independent with self care , IADLS, driving. Pt is far below his recent baseline level of function. He has severely slowed speed of processing and significant cognitive deficits as described above; as well as performance deficits in all functional mobility/transfers, activity tolerance, standing grooming, dressing, toileting and bathing. He is not safe to return home alone with full flight of stairs to bedroom and bathroom. Recommend SNF at discharge for further rehab services with possible transition to [facility] depending on progress. Goals Self-Feeding Goal Independent Grooming Goal Standby Assistance Dressing Goal Standby Assistance Long Handled Shoe Horn Contract Clerk Sock Aid Toileting Goal Standby Assistance Bathing Goal Standby Assistance Toilet Transfer Goal Standby Assistance Shower Transfer Goal Standby Assistance Patient/Caregiver Education Goal Demonstrate Energy Conservation and Pacing Days to Meet Goals 7 Frequency of Treatment Frequency Of Treatment Once a Day Treatment Plan OT Treatment Plan ADL Training Functional Mobility Patient/Family Education Discharge Planning Discharge Recommendations OT Discharge Recommendations SNF Rehab Home Equipment Needs to be determined in next rehab setting
[2019-02-03] MEDS: SIMVASTATIN 20 MG TABLET PO (21:33)
[2019-02-04 03:25] VITALS: BP 148/89; PULSE 77; RESP 12; TEMP 37.1; O2SAT 98
[2019-02-04 06:16] LABS: BUN Creatinine Ratio 13.6 (6-22); Blood Urea Nitrogen 30 mg/dL (9-20); Calcium 9.2 mg/dL (8.4-10.2); Carbon Dioxide 20 mmol/L (22-32); Chloride 105 mmol/L (98-107); Estimated Glomerular Filt Rate 29.7 mL/min (>60); Glucose 102 mg/dL (80-110); HEMOLYSIS < 15 (0-50); Magnesium 1.9 mg/dL (1.6-2.3); Potassium 4.3 mmol/L (3.4-5.1); Sodium 135 mmol/L (137-145)
[2019-02-04 07:00] VITALS: O2SAT 97
[2019-02-04 08:00] VITALS: BP 169/96; PULSE 83; RESP 20; TEMP 37.4; O2SAT 97
[2019-02-04] MEDS: ASCORBIC ACID 500 MG TABLET PO (09:40)
[2019-02-04] MEDS: HEPARIN 5,000 UNIT/ML VIAL 5000 UNIT SUBCUT (09:40)
[2019-02-04] MEDS: METOPROLOL ER 25 MG TABLET 12.5 MG PO (09:40)
[2019-02-04] MEDS: CYANOCOBALAMIN (VITAMIN B-12) 100 MCG TABLET PO (09:40)
[2019-02-04] MEDS: SODIUM CHLORIDE 0.9% FLUSH 10 ML IV (09:41)
[2019-02-04] MEDS: MULTIVITAMIN 1 TABLET 1 TAB PO (09:41)
--- NOTE | 2019-02-04 10:14 | PT.IPTN ---
Current Diagnoses Weakness (02/02/19) Physical Therapy Treatment Note M2 PT-IP Current Condition Start: 02/02/19 17:44 Freq: NEEDED Status: Active Protocol: Document 02/02/19 14:35 AB (Rec: 02/02/19 17:59 AB [id number]) Physical Therapy Current Condition Current Condition Evaluation Date 02/02/19 Treatment Diagnosis renal CA; failure to thrive; dehydration; generalized weakness Onset Date 02/02/19 Precautions Other Precautions contact chemo precaution M3 PT-IP Subjective Start: 02/02/19 17:44 Freq: NEEDED Status: Active Protocol: Document 02/04/19 10:14 AB (Rec: 02/04/19 10:59 AB [id number]) Subjective Physical Therapy Visit Type Type Treatment Note Visit Start Time 10:14 Visit Stop Time 10:42 Total Visit Minutes 28 Number of FORESTRY FIRE AID Visits 0 Physical Therapy Visit Comments Patient Comments pt agreed to get out of bed Therapy Pain Assessment Pain When Pain Assessed During Mobility Pain Present Pain Present Pain Reported Location Right Knee Scale Used pain scale not stated M4 PT-IP Mobility and Gait Start: 02/02/19 17:44 Freq: NEEDED Status: Active Protocol: Document 02/04/19 10:14 AB (Rec: 02/04/19 10:59 AB [id number]) PT-Bed Mobility Assessment Supine to Sit Supine to Sit Maximum Assistance 2 Person Assistance Head of Bed Elevated Bedrails Scooting Scooting to Edge of Bed Dependent PT-Transfer Assessment Sit to and From Stand Sit to and from Stand Maximum Assistance 1 Person Assistance 2 Person Assistance Use of Upper Extremities Equipment Transfer Assistive Device Gait Belt Front Wheeled Walker Orthotic/Prosthetic Devices or Brace: No Transfers Transfer Destination Chair Transfer Technique Stand Step Pivot Transfer Ability Level of Assist Maximum Assistance 1 Person Assistance Use of Upper Extremities Comments Mobility Comments pt slower to respond to instructions and questions today. requires max A x 2 for bed mobility supine to sit with HOB elevated. pt required initial mod to max A to maintain sitting on EOB but after positioning required min A. pt required total A for scooting to EOB. pt required max A x 1-2 for sit to stand. pt requested to use the toilet. attempted to ambulate and was able to take ~ 2 steps but requires max A and max cues. opted to use the urinal. NAC assisted while PT assisted pt with standing balance using FWW requiring mod A and cues. pt completed step pivot transfer to the chair max A and max cues. requires max A for weight shifting to assist with LE propulsion. pt sat on chair. Pt completed sit to stand from the chair max A x 1 -2 and max cues and NAC assisted with brief management . pt sat back on chair. call light and table placed within reach. M5 PT-IP Objective Assessments Start: 02/02/19 17:44 Freq: NEEDED Status: Active Protocol: Document 02/03/19 11:52 NFW (Rec: 02/03/19 12:21 NFW [id number]) Orientation Orientation/Cognition Level of Alertness Alert M6 PT-IP Treatment Start: 02/02/19 17:44 Freq: NEEDED Status: Active Protocol: Document 02/04/19 10:14 AB (Rec: 02/04/19 10:59 AB [id number]) Physical Therapy Treatment Education Education Provided Safety M7 PT-IP Assessment and Plan Start: 02/02/19 17:44 Freq: NEEDED Status: Active Protocol: Document 02/04/19 10:14 AB (Rec: 02/04/19 10:59 AB [id number]) PT Summary Assessment and Plan Potential Rehabilitation Potential Fair Summary Impairments Strength Balance Sensation Cognition Bed Mobility Transfers Gait Activity Tolerance Progress Towards Goals Slow Progress due to Medical Issues Slow Progress due to Activity Tolerance Assessment Summary pt requiring increase assistance today for mobility and seems to have slower response to questions and instructions provided. pt is not safe to go home and will require SNF rehab to improve strength and mobility. Goals Bed Mobility Goal Standby Assistance Transfer Goal Standby Assistance Front Wheeled Walker Gait Goal Standby Assistance Front Wheel Walker Gait Distance 150 Other Goals up/down 2 steps without rail / SPC SBA up/down 20 steps using bilateral rails SBA Days to Meet Goals 10 Frequency of Treatment Frequency Of Treatment Twice a Day Treatment Plan Physical Therapy Treatment Plan Bed Mobility Training Transfer Training Gait Training Therapeutic Exercise Balance Retraining Discharge Planning Neuromuscular Re-ed Manual Therapy Other Recommendations and Next Treatment ambulation, stair climbing Focus Recommendations To Nursing Amount of Assist Needed 1 Person Assist Discharge Recommendations PT Discharge Recommendations SNF Rehab
[2019-02-04 11:00] VITALS: BP 144/76; PULSE 71; RESP 22; TEMP 36.8; O2SAT 97
--- NOTE | 2019-02-04 11:19 | PC.NURSE ---
AM shift pt A and oriented to person, place, and month. Movements are slow, speech is delayed and soft, but appropriate. Swallowing PO pills. Up to chair 1-2PA with FWW. PT assisted pt to chair around 11am. pt didn't eat any breakfast and when asked about it he replied with I'm pretty tired. pt rested (with eyes closed) for most of the morning. 1-2PA for brief changes. Patient was sweaty so we removed a couple layers of blankets, no fever with temp check. Patient is calling appropriately with call light. PIV to right hand flushing.
--- NOTE | 2019-02-04 12:33 | P.DS_ITS ---
History of Present Illness Date Patient Seen: 02/04/19 Time Patient Seen: 13:00 Chief complaint: SIDE AFFECTS TO CHEMO Narrative: As per Francesca Orourke: Sean Shipman is a pleasant 73-year-old male with a history of hypertension, hyperlipidemia, prostate cancer, and history of a urethral blood clot, currently being treated for renal cell carcinoma and undergoing immune therapy under the care of Dr. Goins at [facility]. He states that he underwent an immunotherapy treatment 2 weeks ago which was the 1st treatment he had received for the renal cell carcinoma. He does not know what medications he was administered. He reported to the emergency room having no energy he has had a little bit of diarrhea however none today. He denies fever or chills, shortness of breath, chest pain, nausea or vomiting, abdominal pain, he does endorse having urinary urge particularly has been bad since starting this immune therapy. He states he has also had stiff joints since starting this immune therapy. He has had longstanding tingling in his toes, denies any lesions or rashes, denies having history of thyroid disease. Patient is under the care of a PCP in [place] however we do not have any records of his current medications and by the time I came down to see him his sister who had his medication list had left. Discharge Providers Date of admission: 02/02/19 02:16 Discharge Date: 02/04/19 Consults: 02/02/19 12:39 Consult to Occupational Therapy Evaluate & Treat Comment: Physician Instructions: Evaluate and treat Consult to Physical Therapy Evaluate & Treat Comment: Physician Instructions: Evaluate and Treat Discharge provider: Cl Bryan DO Summary Discharge Diagnosis: 1. Status post renal cell carcinoma immune therapy side effect, acute, present on admission 2. Leukocytosis 3. Essential hypertension, chronic, present on admission 4. Hyperlipidemia, chronic 5. Chronic Kidney disease, baseline Cr 2.1 - 2.2. Hospital Course: Sean Garcia is a 73-year-old male with a past medical history of hypertension hyperlipidemia, chronic kidney disease (baseline creatinine 2.1-2.2), and metastatic renal cell carcinoma status post left nephrectomy in December of 2017 and then recently started on pembrolizumab and axitinib who is admitted for failure to thrive and inability to maintain himself secondary to chemotherapy initiation. There is no evidence of infectious etiologies at this time or metabolic abnormalities. 1. Status post renal cell carcinoma immune therapy side effect, acute, present on admission - recent therapy initated included pembrolizumab and axitinib. These likely lead to his profound weakness. These medications are being held so that he may regain strength, he is currently still too weak to navigate stairs which is his impediment to discharge home. He had no electrolyte abnormalities or focal weakness to suggest another cause of his profound weakness. -patient will be leaving to [facility] in the hopes that his strength will improve and he can go home. - he should follow up with his Oncologist, Dr. Goins, when improved with his strength to discuss other possible treatment strategies if desired. 2. Leukocytosis - rising today in the absence of clinical signs of infection. Would recommend outpatient monitoring with CBC in 3-5 days. 3. Essential hypertension, chronic, present on admission - continue metoprolol 12.5 mg daily 4. Hyperlipidemia, chronic - continue home simvastatin 20 mg daily 5. Chronic Kidney disease, baseline Cr 2.1 - 2.2. Admission Cr 2.4 now at baseline. Status at Discharge Cognitive/behavioral status at discharge: at baseline, confused and calm Functional status at discharge: uses cane/walker Overall status at discharge: patient is not back to baseline Time Spent with Patient Greater than 30 minutes Exam Vital Signs (past 8 hours): - 02/04/19 07:00 02/04/19 08:00 02/04/19 11:00 Temperature 99.3 F 98.3 F Pulse Rate 83 71 Respiratory Rate 20 22 Blood Pressure 169/96 H 144/76 H Pulse Oximetry 97 97 97 Oxygen Delivery Method Room Air Oxygen Flow Rate 0 Narrative Exam Narrative: GENERAL APPEARANCE: Well developed, well nourished, in no acute distress. Elderly male sitting in bedside chair. SKIN: Inspection of the skin reveals no rashes, ulcerations or petechiae. HEENT: The sclerae were anicteric and conjunctivae were pink and moist. Extraocular movements were intact and pupils were equal, round, and reactive to light with normal accommodation. External inspection of the ears and nose showed no scars, lesions, or masses. Lips, teeth, and gums showed normal mucosa. The oral mucosa, hard and soft palate, tongue and posterior pharynx were normal. NECK: Supple and symmetric. There was no thyroid enlargement, and no tenderness, or masses were felt. CHEST: Normal AP diameter and normal contour without any kyphoscoliosis. LUNGS: Auscultation of the lungs revealed no wheezes, rhonchi, or rales. CARDIOVASCULAR: There was a regular rate and rhythm without any murmurs, gallops, rubs. The carotid pulses were normal and 2+ bilaterally without bruits. Peripheral pulses were 2+ and symmetric. ABDOMEN: Soft and nontender with normal bowel sounds. No ascites was noted. MUSCULOSKELETAL: Gait as noted belowl. There was no tenderness or effusions noted. Muscle strength and tone were normal. EXTREMITIES: No cyanosis, clubbing or edema. NEUROLOGIC: Alert and oriented x 3. Normal affect. Slowed and difficult gait. PSYCHIATRIC: Somewhat slowed and flat responses. Irritable at times during the interview. Objective Labs Result Diagrams: 02/02/19 05:28 02/04/19 05:30 Labs: Laboratory Results - last 24 hr 02/04/19 05:30 Sodium 135 L Potassium 4.3 Chloride 105 Carbon Dioxide 20 L BUN 30 H Creatinine 2.20 H Estimated GFR 29.7 L BUN/Creatinine Ratio 13.6 Glucose 102 Calcium 9.2 Magnesium 1.9 Discharge Plan Discharge Plan Patient Disposition: SNF Transfer to: [facility] Transportation: Facility vehicle Labs: Recommend CBC in 3-5 days for leukocytosis without evidence of infection Discharge comment: Sean Garcia is a 73-year-old male with a past medical history of hypertension hyperlipidemia, chronic kidney disease (baseline creatinine 2.1-2.2), and metastatic renal cell carcinoma status post left nephrectomy in December of 2017 and then recently started on pembrolizumab and axitinib who is admitted for failure to thrive and inability to maintain himself secondary to chemotherapy initiation. There is no evidence of infectious etiologies at this time or metabolic abnormalities. 1. Status post renal cell carcinoma immune therapy side effect, acute, present on admission - recent therapy initated included pembrolizumab and axitinib. These likely lead to his profound weakness. These medications are being held so that he may regain strength, he is currently still too weak to navigate stairs which is his impediment to discharge home. -patient will be leaving to [facility] in the hopes that his strength will improve and he can go home. - he should follow up with his Oncologist, Dr. Goins, when improved with his strength to discuss other possible treatment strategies if desired. 2. Essential hypertension, chronic, present on admission - continue metoprolol 12.5 mg daily 3. Hyperlipidemia, chronic - continue home simvastatin 20 mg daily 4. Chronic Kidney disease, baseline Cr 2.1 - 2.2. Admission Cr 2.4 now at baseline. 5. Leukocytosis - rising today in the absence of clinical signs of infection. Would recommend outpatient monitoring with CBC in 3-5 days. I certify the postop hospital correction care is medically necessary on a continuing basis for any conditions for which he/ she received care during this hospitalization.: Yes The receiving facility has agreed to accept transfer and provide medical treatment.: Yes Discharge Med Rec/Prescriptions Prescriptions: New ascorbic acid (vitamin C) [Vitamin C] 500 mg Tablet 500 mg PO DAILY 30 Days Qty: 30 RF: 0 Continued simvastatin 20 mg tablet 20 mg PO DAILY RF: 0 metoprolol succinate 25 mg tablet extended release 24 hr 12.5 mg PO DAILY RF: 0 Daily Multivitamin 1 tab PO DAILY 30 Days Qty: 30 RF: 0 cyanocobalamin (vitamin B-12) 1 cap PO DAILY 30 Days Qty: 30 RF: 0 Discontinued Inlyta 5 mg tablet 5 mg PO BID RF: 0 Follow up/Referrals: Shayan Goins MD [Physician] - (For follow up after discharge from hospital.) Discharge Health Status Brief summary of current health status: Please see above Precautions: [place] Provider Discharge Instructions Diet: Diet as Tolerated and Low-cholesterol Activity: As tolerated Special Rehabilitation Services Reason for rehabilitation: Recovery r/t decondition Rehab type: Physical therapy Discharge Data Attending Provider: Francesca Orourke Admit Date/Time: 02/02/19 02:16 Quality VTE Deep Vein Thrombosis/Pulmonary Embolism Present on Admission: No
--- NOTE | 2019-02-04 13:40 | CM.DPC ---
DCP: continued: Dr. Bryan has deemed pt stable for d/c to [facility] today as per plan. Orders have been completed and faxed to [place]. w/c van transport set up by [facility] will be here at 1430. Pt has been updated. He remains with a very slow response time but said he understood he was going today and that his sister Sheila would be meeting him there. Called Sheila with update and did discuss the cognitive/SLUMS testing done yesterday by OT Cassidy showing a dementia indications and specifics of the cognitive deficits noted at that time. She does have the POLST from and will be following up on this going forward. PASRR: completed, faxed to [facility], placed to [facility] for scan process and put into snf packet. Care team members are updated. P: [facility] today, pvt pay/OBS status in hospital. 1430 w/c van.
--- NOTE | 2019-02-04 14:19 | CM.MNRNOTE ---
Report to [facility] Provided report to Amina at [facility] regarding pt. No questions remain.
--- NOTE | 2019-02-04 14:29 | PC.NURSE ---
Transfer to [facility] pt belongings retrieved from safe and wallet is in hand. Room is packed up. PIV DC'ed. [facility] came with . pt's brief was changed and he was transferred to and wheeled away. [facility] staff member placed paperwork in pt's bag. Patient was given his cane before leaving room (phone and wallet are in his bag).
--- NOTE | 2019-03-22 11:16 | ONC.MSW ---
Description: T/C re: transferring care from [facility] to [facility] Activity: Spoke with patient who is requesting to begin seeing Dr. Goins here at [facility] rather than at [facility], where he's been a pt of Dr. Goins's for the last year. 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 She will call him to get him in at [facility] this week, then plan to transfer his records here for his first scheduled appt.-hopefully next week. Schedulers aware and will call him to schedule.
== END 2019-02-04 14:47 ==
LOC: ED 21:30 → AC 02-02 02:17
PROVIDERS: Internal Medicine; Admitting Provider Nurse Practitioner Family; Emergency Provider Emergency Medicine; Visit Provider Nurse Practitioner Family
DX: E86.0 Dehydration (principal); R53.1 Weakness; R62.7 Adult failure to thrive; C64.2 Malignant neoplasm of left kidney, except renal pelvis; C78.00 Secondary malignant neoplasm of unspecified lung; I12.9 Hypertensive chronic kidney disease with stage 1 through stage 4 chronic kidney disease, or unspecified chronic kidney disease; N18.9 Chronic kidney disease, unspecified; T45.1X5A Adverse effect of antineoplastic and immunosuppressive drugs, initial encounter; C64.9 Malignant neoplasm of unspecified kidney, except renal pelvis; I10 Essential (primary) hypertension; E78.5 Hyperlipidemia, unspecified; D72.829 Elevated white blood cell count, unspecified
CPT/HCPCS: 36415; 36591; 71046; 80048; 81001; 83735; 84145; 85025; 96360; 97116; 97127; 97162; 97166; 97530; 97535; 99283; 99284; G0378; J1644; J7050